=== PATIENT | male | born 1980 | race Caucasian/White ===

== ENCOUNTER 2020-12-25 02:06 | Emergency (ER) | payer SELFPAY ==
[2020-12-25 02:14] VITALS: BP 140/89; PULSE 88; RESP 18; TEMP 36.8; O2SAT 98
[2020-12-25] MEDS: IBUPROFEN 400 MG TABLET 800 MG PO (02:28)
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
[2020-12-25 02:50] VITALS: BP 132/80; PULSE 82; RESP 18; TEMP 37.2; O2SAT 98
[2020-12-25] MEDS: TETANUS,DIPHTHERIA,AC PERTUSSIS ADULT 0.5 ML (ADACEL) IM (03:00)
== END 2020-12-25 03:01 | disposition home or self-care (01) ==
PROVIDERS: Emergency Provider Emergency Medicine
DX: S70.312A Abrasion, left thigh, initial encounter (principal)
CPT/HCPCS: 90471; 90715; 99283; A9270

== ENCOUNTER 2021-03-24 22:43 | Emergency (ER) | payer SELFPAY ==
--- NOTE | ~2021-03-24 | XR_ITS ---
EXAMINATION: XR foot LT 2V INDICATION: Left foot pain TECHNIQUE: Three views of the left foot are obtained. COMPARISON: None available FINDINGS: There is a questionable acute, nondisplaced, transverse fracture of the shaft of the fifth distal phalanx. No additional acute osseous abnormality is suspected. 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 The soft tissues are unremarkable. IMPRESSION: 1. Possible nondisplaced fifth distal phalanx fracture. Reviewed, dictated and finalized at location A. TRICAL MACHINIST
[2021-03-25 00:02] VITALS: BP 114/67; PULSE 64; RESP 18; TEMP 36.4; O2SAT 98
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
[2021-03-25 00:57] VITALS: BP 114/88; PULSE 85; RESP 16; TEMP 36.8; O2SAT 98
== END 2021-03-25 00:59 | disposition home or self-care (01) ==
PROVIDERS: Emergency Provider Emergency Medicine
DX: S93.602A Unspecified sprain of left foot, initial encounter (principal)
CPT/HCPCS: 73620; 99282; 99283

== ENCOUNTER 2021-04-05 17:35 | Emergency (ER) | payer SELFPAY ==
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
[2021-04-05 17:54] VITALS: BP 145/93; PULSE 96; RESP 16; TEMP 36.9; O2SAT 100
--- NOTE | 2021-04-05 18:49 | ECG_ITS ---
Measurements Intervals Welch Rate: 95 P: 63 LA: 174 QRS: 78 QRSD: 105 T: 67 QT: 363 QTc: 458 Interpretive Statements SINUS RHYTHM POSSIBLE LEFT VENTRICULAR HYPERTROPHY MINIMAL Q WAVES- INF/LAT LEADS BASELINE ARTIFACT- I, III BORDERLINE ECG Electronically Signed On 04-05-2021 20:04:37 DIRECTOR OF LEADERSHIP DEVELOPMENT by Ted Frias D.O.
[2021-04-05 18:56] VITALS: BP 154/94; PULSE 91; RESP 20; O2SAT 99
[2021-04-05 19:20] LABS: Basophils Absolute Auto 0.03 K/mm3 (0.00-0.10); Basophils Percent Auto 0.3 % (0.0-1.0); Eosinophils Absolute Auto 0.06 K/mm3 (0.02-0.50); Eosinophils Percent Auto 0.6 % (1.0-6.0); Hematocrit 40.3 % (40.0-54.0); Hemoglobin 13.2 g/dL (14.0-18.0); Immature Granulocyte Absolute 0.03 K/mm3 (0.00-0.00); Immature Granulocyte Percent A 0.3 % (0.0-0.0); Lymphocytes Absolute Auto 1.45 K/mm3 (1.10-4.50); Lymphocytes Percent Auto 14.3 % (18.0-42.0); Mean Corpuscular HGB Conc 32.8 g/dL (32.0-36.0); Mean Corpuscular Hemoglobin 31.1 pg (27.0-31.0); Monocytes Absolute Auto 0.82 K/mm3 (0.10-0.90); Monocytes Percent Auto 8.1 % (2.0-11.0); Neutrophils Absolute Auto 7.7 K/mm3 (1.7-7.2); Neutrophils Percent Auto 76.4 % (50.0-70.0); Platelet Count Result 285 K/mm3 (150-420); Red Blood Count 4.24 M/mm3 (4.70-6.10); Red Cell Distribution Width 12.5 % (11.6-14.4); White Blood Count 10.1 K/mm3 (4.8-10.8)
[2021-04-05] MEDS: SODIUM CHLORIDE 0.9% IV 1,000 ML 999 ML IV CONT (19:21)
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
[2021-04-05 19:35] LABS: Alanine Aminotransferase 33 U/L (16-63); Alkaline Phosphatase 97 U/L (46-116); Anion Gap 8 mmol/L (8-16); Aspartate Amino Transferase 35 U/L (15-37); Bilirubin,Total 0.2 mg/dL (0.00-1.00); Blood Urea Nitrogen 17 mg/dL (7-18); Calcium 9.2 mg/dL (8.5-10.1); Carbon Dioxide 28 mmol/L (21-32); Chloride 103 mmol/L (98-108); Estimated CRCL calculation 54 ml/min; Estimated Glomerular Filt Rate 59; Glucose 111 mg/dL (70-99); Lactic Acid Reflex 0.9 mmol/L (0.4-2.0); Osmolality Calculated 290 mOsm/kg (285-295); Potassium 3.3 mmol/L (3.5-5.1); Sodium 139 mmol/L (136-145); Total Protein 6.8 g/dL (6.4-8.2); Troponin I 4.3 ng/L (0.00-60.4)
[2021-04-05 19:37] LABS: Ethanol < 3 mg/dL (0-6)
--- NOTE | 2021-04-05 20:07 | PC.NURSE ---
pt demanding to leave. this staff member informed patient that the doctor will see him and determine if he requires sutures. pt states, I want the fuck out of here. I don't need stitches , super glue is fine, i want the fuck out of here. this staff member informed MD Arboleda and informed me to have the patient sign out AMA. this staff member presented the patient with an AMA form to sign. patient refused to sign the AMA form and stated, i guess i need to at least see the doctor. this staff member informed MD Arboleda that the patient is going to wait to be seen by the doctor.
[2021-04-05 20:27] LABS: Add Urine Microscopic? NO; Appearance Urine Clear (Clear); Bilirubin Urine Negative (Negative); Blood Urine Negative (Negative); Color Urine Light Yellow (Yellow); Glucose Urine UA Negative (Negative); Ketones Urine Negative (Negative); Leukocyte Esterase Ur Negative (Negative); Nitrate Urine Negative (Negative); Protein Urine Negative (Negative); Urobilinogen Urine 0.2 mg/dL (0.2-1.0)
[2021-04-05 20:34] LABS: Amphetamine Screen Urine Positive (Negative); Barbiturate Screen Urine Negative (Negative); Benzodiazepines Screen Urine Negative (Negative); Cannabinoid Screen Urine Positive (Negative); Cocaine Screen Urine Negative (Negative); Methadone Screen Urine Negative (Negative); Opiate Screen Urine Negative (Negative); Phencyclidine Screen Urine Negative (Negative)
--- NOTE | 2021-04-05 20:48 | PC.NURSE ---
pt refused facial ct without contrast. MD Arboleda notified
--- NOTE | 2021-04-05 21:16 | PC.NURSE ---
pt stated, I don't want to wait. I want to get the fuck out of here. take this IV out so I can go. I don't want to wait for the doctor. Staff removed IV, applied dressing, and pt signed AMA form. MD Arboleda updated with pt status.
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
== END 2021-04-05 21:16 | disposition left against medical advice (07) ==
LOC: CHSED 17:38
PROVIDERS: Emergency Provider Emergency Medicine
DX: S09.90XA Unspecified injury of head, initial encounter (principal); V19.9XXA Pedal cyclist (driver) (passenger) injured in unspecified traffic accident, initial encounter
CPT/HCPCS: 36415; 70450; 72125; 80053; 80307; 81003; 83605; 84484; 85025; 93005; 96360; 99199; J7030

== ENCOUNTER 2021-04-27 06:29 | Emergency (ER) | payer SELFPAY ==
[2021-04-27 06:35] VITALS: BP 136/85; PULSE 80; RESP 20; TEMP 36.2; O2SAT 99
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
[2021-04-27] MEDS: HYDROcodone/acetaminophen (*CRX) 5-325 MG TABLET 1 TAB PO (07:10)
[2021-04-27] MEDS: NEOMYCIN/POLYMYXIN/BACITRACIN OINTMENT PACKET 2 PACKET TOPICAL (07:16)
[2021-04-27 07:27] LABS: Basophils Absolute Auto 0.04 K/mm3 (0.00-0.10); Basophils Percent Auto 0.3 % (0.0-1.0); Eosinophils Absolute Auto 0.12 K/mm3 (0.02-0.50); Eosinophils Percent Auto 0.9 % (1.0-6.0); Hematocrit 39.9 % (40.0-54.0); Hemoglobin 13.2 g/dL (14.0-18.0); Immature Granulocyte Absolute 0.04 K/mm3 (0.00-0.00); Immature Granulocyte Percent A 0.3 % (0.0-0.0); Lymphocytes Absolute Auto 1.95 K/mm3 (1.10-4.50); Lymphocytes Percent Auto 15.1 % (18.0-42.0); Mean Corpuscular HGB Conc 33.1 g/dL (32.0-36.0); Mean Corpuscular Hemoglobin 31.4 pg (27.0-31.0); Mean Platelet Volume 9.3 fl (8.7-11.0); Monocytes Absolute Auto 1.22 K/mm3 (0.10-0.90); Monocytes Percent Auto 9.5 % (2.0-11.0); Neutrophils Absolute Auto 9.5 K/mm3 (1.7-7.2); Neutrophils Percent Auto 73.9 % (50.0-70.0); Platelet Count Result 288 K/mm3 (150-420); Red Cell Distribution Width 12.3 % (11.6-14.4); White Blood Count 12.9 K/mm3 (4.8-10.8)
[2021-04-27 07:43] LABS: Alanine Aminotransferase 23 U/L (16-63); Albumin Level 3.3 g/dL (3.4-5.0); Alkaline Phosphatase 134 U/L (46-116); Anion Gap 11 mmol/L (8-16); Aspartate Amino Transferase 13 U/L (15-37); Bilirubin,Total 0.1 mg/dL (0.00-1.00); Blood Urea Nitrogen 10 mg/dL (7-18); Calcium 8.7 mg/dL (8.5-10.1); Carbon Dioxide 27 mmol/L (21-32); Chloride 100 mmol/L (98-108); Estimated CRCL calculation 83 ml/min; Estimated Glomerular Filt Rate > 60; Glucose 111 mg/dL (70-99); Osmolality Calculated 286 mOsm/kg (285-295); Potassium 3.6 mmol/L (3.5-5.1); Sodium 138 mmol/L (136-145); Total Protein 6.8 g/dL (6.4-8.2)
[2021-04-27 07:52] VITALS: BP 136/85; PULSE 76; RESP 16
== END 2021-04-27 07:54 | disposition home or self-care (01) ==
PROVIDERS: Emergency Medicine; Emergency Provider Emergency Medicine
DX: L03.90 Cellulitis, unspecified (principal)
CPT/HCPCS: 36415; 80053; 85025; 87040; 99282; 99283; A9270

== ENCOUNTER 2021-04-28 16:03 | Emergency (ER) | payer SELFPAY ==
[2021-04-28 16:10] VITALS: BP 128/87; PULSE 93; RESP 20; TEMP 37.3; O2SAT 100
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
[2021-04-28] MEDS: KETOROLAC (*BKC) 60 MG/2 ML VIAL IM (16:43)
[2021-04-28] MEDS: cefTRIAXone 1 GM VIAL IM (16:44)
[2021-04-28 16:45] VITALS: BP 126/84; PULSE 93; RESP 20; TEMP 37.3; O2SAT 100
--- NOTE | 2021-04-28 16:49 | PC.NURSE ---
pt did not want to wait 15 observation time after injection .
== END 2021-04-28 16:49 | disposition home or self-care (01) ==
PROVIDERS: Emergency Provider Emergency Medicine
DX: S60.86 Insect bite (nonvenomous) of wrist (principal); L03.113 Cellulitis of right upper limb
CPT/HCPCS: 96372; 99283; 99284; J0696; J1885

== ENCOUNTER 2021-07-07 21:10 | Emergency (ER) | payer SELFPAY ==
--- NOTE | ~2021-07-07 | CT_ITS ---
EXAMINATION: CT brain wo con EXAM DATE: 07/07/2021 21:36 INDICATION: Head injury. Laceration towards posterior skull TECHNIQUE: Spiral CT of the head was performed without contrast. Axial, coronal and sagittal images were reviewed. The dose-length product (DLP) for this examination was 605.33 mGy-cm. The exposure w as tailored according to patient size, and iterative reconstruction (ASIR) was used as additional dos e reduction technique. Comparison is made to prior examination from 04/05/2020. FINDINGS: There is no acute intraparenchymal hemorrhage. No evidence of intraparenchymal brain mass lesion. No evidence of acute infarction. There is no mass effect or midline shift. The ventricles are normal in size. There are no extra-axial collections. There are no acute calvarial fractures. T he orbits are unremarkable. Posterior scalp óscar. The visualized sinuses and mastoid air cells ar e well aerated. IMPRESSION: No acute intracranial findings. Reviewed, dictated and finalized at location G.
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
[2021-07-07 21:42] VITALS: BP 133/87; PULSE 96; RESP 21; TEMP 36.9; O2SAT 96
[2021-07-07 21:57] VITALS: BP 131/96; PULSE 100; RESP 21; TEMP 36.9; O2SAT 98
== END 2021-07-07 21:59 | disposition home or self-care (01) ==
PROVIDERS: Emergency Provider Emergency Medicine
DX: S01.01XA Laceration without foreign body of scalp, initial encounter (principal); Y04.0XXA Assault by unarmed brawl or fight, initial encounter
CPT/HCPCS: 12002; 70450; 99284

== ENCOUNTER 2021-07-13 19:18 | Emergency (ER) | payer SELFPAY ==
[2021-07-13 19:26] VITALS: BP 135/91; PULSE 83; RESP 18; TEMP 36.6; O2SAT 97
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
== END 2021-07-13 20:52 | disposition home or self-care (01) ==
PROVIDERS: Emergency Provider Internal Medicine Critical Care Medicine
DX: Z48.02 Encounter for removal of sutures (principal); S01.01XD Laceration without foreign body of scalp, subsequent encounter
CPT/HCPCS: 99281

== ENCOUNTER 2021-10-22 19:23 | Emergency (ER) | payer SELFPAY ==
--- NOTE | ~2021-10-22 | XR_ITS ---
XR tibia fibula LT 2V 10/22/2021 19:48 INDICATION: Left leg pain after fall PROCEDURE: 2 views left tibia/fibula COMPARISON: No prior studies for comparison. FINDINGS: Fracture, dislocation or subluxation is not identified. The soft tissues appear within norm al limits. No foreign bodies are identified. IMPRESSION: 1: NO ACUTE BONE OR JOINT ABNORMALITY IDENTIFIED. Reviewed, dictated and finalized at location A.
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
[2021-10-22 19:35] VITALS: BP 135/102; PULSE 102; RESP 19; TEMP 36.8; O2SAT 99
[2021-10-22 19:44] VITALS: RESP 19
--- NOTE | 2021-10-22 19:44 | PC.NURSE ---
pt refused blood draw for labs.
[2021-10-22 20:16] VITALS: BP 134/93; O2SAT 97
[2021-10-22 21:53] VITALS: BP 120/78; PULSE 83; RESP 16; TEMP 36.5; O2SAT 99
--- NOTE | 2021-10-22 21:55 | PC.NURSE ---
pt refused to provide a urine sample for labs
== END 2021-10-22 21:56 | disposition home or self-care (01) ==
PROVIDERS: Emergency Provider Emergency Medicine
DX: T50.901A Poisoning by unspecified drugs, medicaments and biological substances, accidental (unintentional), initial encounter (principal); S80.12XA Contusion of left lower leg, initial encounter; V19.9XXA Pedal cyclist (driver) (passenger) injured in unspecified traffic accident, initial encounter
CPT/HCPCS: 73590; 99283

== ENCOUNTER 2022-06-20 05:34 | Emergency (ER) | payer OTHER, SELFPAY ==
[2022-06-20 05:35] VITALS: BP 130/86; PULSE 95; RESP 20; TEMP 36.1; O2SAT 99
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
[2022-06-20 05:52] VITALS: BP 130/86; PULSE 95; RESP 20; TEMP 36.4; O2SAT 99
[2022-06-20 05:53] LABS: Basophils Absolute Auto 0.06 K/mm3 (0.00-0.10); Eosinophils Absolute Auto 0.12 K/mm3 (0.02-0.50); Eosinophils Percent Auto 1.9 % (1.0-6.0); Hemoglobin 11.6 g/dL (14.0-18.0); Immature Granulocyte Absolute 0.01 K/mm3 (0.00-0.00); Immature Granulocyte Percent A 0.2 % (0.0-0.0); Lymphocytes Percent Auto 43.1 % (18.0-42.0); Mean Corpuscular HGB Conc 32.2 g/dL (32.0-36.0); Mean Corpuscular Hemoglobin 30.6 pg (27.0-31.0); Mean Platelet Volume 9.3 fl (8.7-11.0); Monocytes Percent Auto 11.2 % (2.0-11.0); Neutrophils Absolute Auto 2.7 K/mm3 (1.7-7.2); Neutrophils Percent Auto 42.6 % (50.0-70.0); Platelet Count Result 223 K/mm3 (150-420); Red Blood Count 3.79 M/mm3 (4.70-6.10); Red Cell Distribution Width 12.6 % (11.6-14.4); White Blood Count 6.3 K/mm3 (4.8-10.8)
[2022-06-20] MEDS: cefTRIAXone 1 GM, LIDOCAINE HCL 1% LOCAL INJ 2.1 ML IM (06:07)
[2022-06-20 06:09] LABS: Alanine Aminotransferase 45 U/L (16-63); Albumin Level 3.7 g/dL (3.4-5.0); Alkaline Phosphatase 111 U/L (46-116); Anion Gap 6 mmol/L (8-16); Aspartate Amino Transferase 43 U/L (15-37); Bilirubin,Total 0.2 mg/dL (0.00-1.00); Blood Urea Nitrogen 10 mg/dL (7-18); Calcium 8.9 mg/dL (8.5-10.1); Carbon Dioxide 32 mmol/L (21-32); Chloride 105 mmol/L (98-108); Estimated CRCL calculation 84 ml/min; Estimated Glomerular Filt Rate > 60; Glucose 95 mg/dL (70-99); Osmolality Calculated 295 mOsm/kg (285-295); Potassium 4.2 mmol/L (3.5-5.1); Sodium 143 mmol/L (136-145); Total Protein 6.6 g/dL (6.4-8.2)
[2022-06-20 06:31] VITALS: BP 133/74; PULSE 87; RESP 18; TEMP 36.3; O2SAT 99
--- NOTE | 2022-06-26 18:57 | PC.NURSE ---
FINAL BLOOD CULTURE: No growth after 5 days, no action needed.
--- NOTE | 2022-06-28 12:09 | PC.NURSE ---
FINAL BLOOD CULTURE RESULTS X2: NO GROWTH AFTER 5 DAYS. NO ACTION NEEDED.
== END 2022-06-20 06:36 | disposition home or self-care (01) ==
PROVIDERS: Emergency Provider Emergency Medicine
DX: L03.032 Cellulitis of left toe (principal); F17.200 Nicotine dependence, unspecified, uncomplicated
CPT/HCPCS: 36415; 80053; 85025; 87040; 96372; 99284; J0696

== ENCOUNTER 2022-07-17 14:57 | Emergency (ER) | payer OTHER, SELFPAY ==
--- NOTE | ~2022-07-17 | XR_ITS ---
EXAMINATION: XR forearm RT 2V INDICATION: Right forearm pain TECHNIQUE: Two views of the right forearm are obtained. COMPARISON: None available FINDINGS: No fracture, dislocation, or subluxation. The bones, soft tissues, and joint spaces are nor mal. IMPRESSION: 1. No acute osseous abnormality. Reviewed, dictated and finalized at location B.
[2022-07-17 14:57] VITALS: BP 131/91; PULSE 100; RESP 18; TEMP 36.6; O2SAT 100
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
== END 2022-07-17 16:10 | disposition home or self-care (01) ==
PROVIDERS: Emergency Provider Family Medicine
DX: S50.11XA Contusion of right forearm, initial encounter (principal); F17.200 Nicotine dependence, unspecified, uncomplicated; W22.09XA Striking against other stationary object, initial encounter; Y93.55 Activity, bike riding
CPT/HCPCS: 73090; 99283

== ENCOUNTER 2022-08-14 18:13 | Emergency (ER) | payer OTHER, SELFPAY ==
[2022-08-14 18:13] VITALS: BP 118/88; PULSE 104; RESP 20; TEMP 36.6; O2SAT 98
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
[2022-08-14 19:07] LABS: Influenza A QL RT-PCR Negative (Negative); Influenza B QL RT-PCR Negative (Negative); SARS-CoV-2 RNA PCR Negative (Negative)
[2022-08-14 19:18] VITALS: BP 118/71; PULSE 78; RESP 18; TEMP 36.7; O2SAT 99
== END 2022-08-14 19:19 | disposition home or self-care (01) ==
LOC: CHSED 19:12
PROVIDERS: Emergency Provider Preventive Medicine Aerospace Medicine
DX: J06.9 Acute upper respiratory infection, unspecified (principal); F17.200 Nicotine dependence, unspecified, uncomplicated; Z20.822 Contact with and (suspected) exposure to COVID-19
CPT/HCPCS: 87636; 99283

== ENCOUNTER 2023-04-14 09:45 | Emergency (ER) | payer OTHER, SELFPAY ==
[2023-04-14] VITALS (10 sets, daily range): BP systolic 120–168; BP diastolic 85–97; PULSE 98; RESP 18; TEMP 35.9; O2SAT 98–100
--- NOTE | ~2023-04-14 | XR_ITS ---
EXAMINATION: XR hand LT min 3V DATE: 04/14/2023 10:30 INDICATION: Left hand lacerations and pain. TECHNIQUE: 4 views of left hand were obtained. COMPARISON: None. FINDINGS: Bone alignment is normal. There is a fragment of ossification palmar to base of fourth midd le phalanx. There is mild osteoarthritis of first carpometacarpal joint. There are lacerations of the fourth and fifth digits. IMPRESSION: 1. Fragment of ossification palmar to base of fourth middle phalanx, which may be an acute fracture o r a chronic finding. Reviewed, dictated and finalized at location A. ERS COMPENSATION ANALYST IMPRESSION: 1. Fragment of ossification palmar to base of fourth middle phalanx, which may be an acute fracture or a chronic finding.
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
[2023-04-14] MEDS: AMOXICILLIN/CLAVULANATE K 875-125 MG TAB 1 TABLET PO (11:09)
[2023-04-14] MEDS: HYDROcodone/acetaminophen (*CRX) 5-325 MG TABLET 2 TAB PO (11:09)
== END 2023-04-14 11:47 | disposition short-term general hospital (02) ==
PROVIDERS: Emergency Provider Emergency Medicine
DX: S61.412A Laceration without foreign body of left hand, initial encounter (principal); F17.200 Nicotine dependence, unspecified, uncomplicated; W26.0XXA Contact with knife, initial encounter; Y92.009 Unspecified place in unspecified non-institutional (private) residence as the place of occurrence of the external cause
CPT/HCPCS: 73130; 99283; A9270

== ENCOUNTER 2023-07-29 22:37 | Emergency (ER) | payer OTHER, SELFPAY ==
[2023-07-29 22:38] VITALS: BP 127/88; PULSE 84; RESP 18; TEMP 36.3; O2SAT 97
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
[2023-07-29] MEDS: IBUPROFEN 400 MG TABLET 800 MG PO (23:04)
== END 2023-07-29 23:07 | disposition home or self-care (01) ==
PROVIDERS: Emergency Provider Emergency Medicine
DX: K02.9 Dental caries, unspecified (principal); F17.210 Nicotine dependence, cigarettes, uncomplicated
CPT/HCPCS: 99283; A9270

== ENCOUNTER 2023-08-14 03:38 | Emergency (ER) | payer OTHER, SELFPAY ==
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
--- NOTE | ~2023-08-14 | XR_ITS ---
Left Hand Technique: PA, oblique, and lateral views were obtained. Clinical History: Pain Findings: No acute fracture or dislocation is seen. Osseous alignment is anatomic. Joint spaces are p reserved. Soft tissues are unremarkable. Impression: Unremarkable left hand. Reviewed, dictated and finalized at location M. Impression: Unremarkable left hand.
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
[2023-08-14 03:51] VITALS: BP 127/86; PULSE 103; RESP 16; TEMP 36.1; O2SAT 98
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
--- NOTE | 2023-08-14 04:20 | PC.NURSE ---
RN AT BEDSIDE TO MEDICATE PATIENT AFTER RETURNING FROM IMAGING. PATIENT NOTIFIED OF MEDICATION ORDERED AND ROUTE OF PAIN RELIEF HOWEVER PATIENT IMMEDIATELY REFUSES STATING NO SHOTS, I DON'T LIKE SHOTS, I DON'T LIKE NEEDLES, I DON'T WANT MORE PAIN. RN PROVIDED PATIENT EDUCATION REGARDING PAIN MEDICATION HOWEVER PATIENT REMAINED ADAMANT AROUND REFUSING MEDICATION. PATIENT RESTING COMFORTABLY ON STRETCHER AT THIS TIME, SEEMINGLY MORE CALM AFTER IMAGING.
== END 2023-08-14 05:12 | disposition home or self-care (01) ==
PROVIDERS: Emergency Provider Emergency Medicine
DX: S09.90XA Unspecified injury of head, initial encounter (principal); S20.213A Contusion of bilateral front wall of thorax, initial encounter; Y04.2XXA Assault by strike against or bumped into by another person, initial encounter; Z59.00 Homelessness unspecified; F17.210 Nicotine dependence, cigarettes, uncomplicated
CPT/HCPCS: 70450; 71046; 73130; 99284

== ENCOUNTER 2023-11-05 20:58 | Emergency (ER) | payer OTHER, SELFPAY ==
[2023-11-05] VITALS (9 sets, daily range): BP systolic 103–136; BP diastolic 80–101; PULSE 75–109; RESP 8–16; TEMP 36.9; O2SAT 90–100
--- NOTE | ~2023-11-05 | XR_ITS ---
EXAMINATION: XR chest 1V portable Exam Date/Time: 11/05/2023 21:14 CDT HISTORY: sob Comparison: 08/14/2023. RESULT: Lines, tubes, and devices: None. Lungs and pleura: Clear. Cardiomediastinal silhouette: Mild right hemidiaphragm elevation, otherwise stable. Other: No acute osseous or upper abdominal finding. IMPRESSION: No acute cardiopulmonary process. Reviewed, dictated and finalized at location K.
--- NOTE | 2023-11-05 21:10 | PC.NURSE ---
patient is on electronic device monitor. continues to refuse treatment to be completed
[2023-11-05] MEDS: LORazepam (*CRX) 1 MG TABLET 2 MG PO (21:17)
--- NOTE | 2023-11-05 21:17 | PC.NURSE ---
patient is willing to take ativan after Dr Brumfield spoke with him about his anxiety.
--- NOTE | 2023-11-05 21:18 | ECG_ITS ---
Test Date: 2023-11-05 21:39:00 Measurements Intervals [place] Rate: 91 P: 61 KS: 156 QRS: 57 QRSD: 98 T: 45 QT: 367 QTc: 453 Interpretive Statements SINUS RHYTHM POSSIBLE LEFT ATRIAL ENLARGEMENT POSSIBLE LEFT VENTRICULAR HYPERTROPHY MINIMAL Q WAVES- ANTEROLAT/INF LEADS BORDERLINE ECG No previous ECG available for comparison Electronically Signed On 11-06-2023 07:21:07 CDT by Ted Frias D.O.
--- NOTE | 2023-11-05 21:49 | PC.NURSE ---
patient is refusing to allow iv line placement, refusing narcan. Dr Brumfield at the bedside
--- NOTE | 2023-11-05 22:00 | PC.NURSE ---
patients respirations drop down to 7-8 breaths per minute. woke patient and told him that iv line was need to placed. dr persaud was notified
[2023-11-05 22:07] LABS: Basophils Absolute Auto 0.05 K/mm3 (0.00-0.10); Basophils Percent Auto 0.6 % (0.0-1.0); Eosinophils Absolute Auto 0.13 K/mm3 (0.02-0.50); Eosinophils Percent Auto 1.6 % (1.0-6.0); Hemoglobin 12.3 g/dL (14.0-18.0); Immature Granulocyte Absolute 0.04 K/mm3 (0.00-0.00); Immature Granulocyte Percent A 0.5 % (0.0-0.0); Lymphocytes Absolute Auto 2.27 K/mm3 (1.10-4.50); Mean Corpuscular HGB Conc 33.2 g/dL (32-36); Mean Corpuscular Hemoglobin 30.5 pg (27.0-31.0); Mean Corpuscular Volume 91.8 fL (78.0-102.0); Mean Platelet Volume 8.8 fl (8.7-11.0); Monocytes Absolute Auto 0.89 K/mm3 (0.10-0.90); Neutrophils Absolute Auto 4.73 K/mm3 (1.70-7.20); Neutrophils Percent Auto 58.3 % (50.0-70.0); Platelet Count Result 298 K/mm3 (150-420); Red Blood Count 4.03 M/mm3 (4.70-6.10); Red Cell Distribution Width 12.6 % (11.6-14.4); White Blood Count 8.1 K/mm3 (4.8-10.8)
[2023-11-05] MEDS: SODIUM CHLORIDE 0.9% IV 1,000 ML 999 ML IV CONT (22:07)
[2023-11-05] MEDS: NALOXONE HCL 0.4 MG/ML VIAL 0.1 MG IV PUSH (22:09)
--- NOTE | 2023-11-05 22:12 | PC.NURSE ---
Dr Brumfield at the bedside during narcan administration.
--- NOTE | 2023-11-05 22:15 | PC.NURSE ---
patient is more alert at this time. does fall back asleep quickly
--- NOTE | 2023-11-05 22:23 | PC.NURSE ---
this rn and provider were talking about depressed respiratory drive and patient states oh like when people use fentanyl
[2023-11-05 22:26] LABS: Alanine Aminotransferase 31 U/L (16-63); Albumin Level 3.9 g/dL (3.4-5.0); Anion Gap 8 mmol/L (4-12); Aspartate Amino Transferase 30 U/L (15-37); Bilirubin,Total 0.2 mg/dL (0.00-1.00); Blood Urea Nitrogen 21 mg/dL (7-18); Calcium 8.8 mg/dL (8.5-10.1); Carbon Dioxide 29 mmol/L (21-32); Chloride 99 mmol/L (98-108); Estimated CRCL calculation 73 ml/min; Estimated Glomerular Filt Rate > 60; Glucose 110 mg/dL (70-99); Osmolality Calculated 286 mOsm/kg (285-295); Potassium 3.4 mmol/L (3.5-5.1); Sodium 136 mmol/L (136-145); Total Protein 6.9 g/dL (6.4-8.2); Troponin I 5.1 ng/L (0.00-60.4)
[2023-11-05 22:27] LABS: Acetaminophen 0 ug/mL (10-30); Salicylate 3.5 mg/dL (2.8-20.0)
[2023-11-05 22:27] LABS: Alkaline Phosphatase 103 U/L (46-116); Ethanol < 3 mg/dL (0-6)
--- NOTE | 2023-11-05 22:46 | PC.NURSE ---
patient resting on stretcher. call light in reach. curtains and door left open for increased monitoring
--- NOTE | 2023-11-05 23:21 | PC.NURSE ---
patient is resting quietly on stretcher. resp even and unlabored. door and curtain remains open for increased monitoring
[2023-11-06] VITALS (25 sets, daily range): BP systolic 110–147; BP diastolic 78–104; PULSE 52–83; RESP 7–12; O2SAT 98–100
--- NOTE | 2023-11-06 00:20 | PC.NURSE ---
patient was moved from room 7 to room 6 where he could be monitored better. door and curtain left open for increased monitoring
--- NOTE | 2023-11-06 01:22 | PC.NURSE ---
patient is resting quietly on stretcher, door and curtain left open so patient can be monitored. resp even and unlabored. call light in reach. will try and get urine sample when patient wakes up
--- NOTE | 2023-11-06 01:33 | PC.NURSE ---
patient keeps taking pulse ox off. sticky pulse ox placed onto patient. patient woke, asked patient if he needed to use the bathroom. mumbled and went back to sleep. urinal at the bedside
--- NOTE | 2023-11-06 02:30 | PC.NURSE ---
patient resting on stretcher in room 6. curtain and door left open to be monitored by staff. appears to be sleeping. resp even and unlabored. manager cardiac in place. call light in reach. urinal at the bedside
--- NOTE | 2023-11-06 03:20 | PC.NURSE ---
patient tried to pull out iv line. told patient to leave iv site alone. patient states oh yea
--- NOTE | 2023-11-06 04:27 | PC.NURSE ---
patient resting on stretcher in room 6. door and curtain open st staff can monitor patient. patient resp even and unlabored. urinal at the bedside. call light in reach
--- NOTE | 2023-11-06 05:11 | PC.NURSE ---
patient sat up and tried to mess with iv site. states im just scratching at it. i am not trying to take it out . this was the clearest that patient has talked since he has been here.
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
--- NOTE | 2023-11-06 07:22 | PC.NURSE ---
PT IS RESTING ON STRETCHER, AROUSES TO VERBAL STIMULI. PT IS TO BE DC WHEN MORE ALERT. BREAKFAST TRAY WAS ORDERED. WILL CONTINUE TO MONITOR.
--- NOTE | 2023-11-06 08:07 | PC.NURSE ---
pt ate all of his breakfast, is awake, alert, has steady gait. pt reports he is ready to be dc.
== END 2023-11-06 08:10 | disposition home or self-care (01) ==
PROVIDERS: Emergency Provider Family Medicine
DX: T40.601A Poisoning by unspecified narcotics, accidental (unintentional), initial encounter (principal); F17.200 Nicotine dependence, unspecified, uncomplicated
CPT/HCPCS: 36415; 71045; 80053; 80307; 84484; 85025; 93005; 96361; 96374; 99284; A9270; J2310; J7030

== ENCOUNTER 2024-01-15 05:58 | Emergency (ER) | payer OTHER, SELFPAY ==
[2024-01-15 06:04] VITALS: BP 135/103; PULSE 92; RESP 24; TEMP 36.3; O2SAT 98
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
[2024-01-15 06:43] LABS: Basophils Absolute Auto 0.04 K/mm3 (0.00-0.10); Basophils Percent Auto 0.5 % (0.0-1.0); Eosinophils Absolute Auto 0.11 K/mm3 (0.02-0.50); Eosinophils Percent Auto 1.4 % (1.0-6.0); Hematocrit 41.4 % (40.0-54.0); Hemoglobin 13.6 g/dL (14.0-18.0); Immature Granulocyte Absolute 0.03 K/mm3 (0.00-0.00); Immature Granulocyte Percent A 0.4 % (0.0-0.0); Lymphocytes Absolute Auto 2.91 K/mm3 (1.10-4.50); Lymphocytes Percent Auto 37.4 % (18.0-42.0); Mean Corpuscular HGB Conc 32.9 g/dL (32-36); Mean Corpuscular Hemoglobin 30.9 pg (27.0-31.0); Mean Corpuscular Volume 94.1 fL (78.0-102.0); Mean Platelet Volume 8.7 fl (8.7-11.0); Monocytes Absolute Auto 0.75 K/mm3 (0.10-0.90); Monocytes Percent Auto 9.6 % (2.0-11.0); Neutrophils Absolute Auto 3.95 K/mm3 (1.70-7.20); Neutrophils Percent Auto 50.7 % (50.0-70.0); Platelet Count Result 328 K/mm3 (150-420); Red Cell Distribution Width 12.8 % (11.6-14.4); White Blood Count 7.8 K/mm3 (4.8-10.8)
[2024-01-15 06:57] LABS: Alanine Aminotransferase 30 U/L (16-63); Albumin Level 3.6 g/dL (3.4-5.0); Alkaline Phosphatase 102 U/L (46-116); Anion Gap 6 mmol/L (4-12); Aspartate Amino Transferase 34 U/L (15-37); Bilirubin,Total 0.4 mg/dL (0.00-1.00); Blood Urea Nitrogen 12 mg/dL (7-18); Calcium 8.7 mg/dL (8.5-10.1); Carbon Dioxide 32 mmol/L (21-32); Chloride 104 mmol/L (98-108); Estimated CRCL calculation 69 ml/min; Estimated Glomerular Filt Rate > 60; Glucose 107 mg/dL (70-99); Osmolality Calculated 293 mOsm/kg (285-295); Potassium 3.7 mmol/L (3.5-5.1); Sodium 142 mmol/L (136-145); Total Protein 6.4 g/dL (6.4-8.2)
--- NOTE | 2024-01-15 07:03 | PC.NURSE ---
Pt resting in stretcher. Gave report to NICOLE Mchugh.
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
[2024-01-15 07:27] LABS: Amphetamine Screen Urine Positive (Negative); Barbiturate Screen Urine Negative (Negative); Benzodiazepines Screen Urine Negative (Negative); Cannabinoid Screen Urine Positive (Negative); Cocaine Screen Urine Negative (Negative); Methadone Screen Urine Negative (Negative); Opiate Screen Urine Negative (Negative); Phencyclidine Screen Urine Negative (Negative)
[2024-01-15 07:28] LABS: Add Urine Microscopic? NO; Appearance Urine Clear (Clear); Bilirubin Urine Negative (Negative); Blood Urine Negative (Negative); Color Urine Yellow (Yellow); Glucose Urine UA Negative (Negative); Ketones Urine Negative (Negative); Leukocyte Esterase Ur Negative LEU/UL (Negative); Nitrate Urine Negative (Negative); Protein Urine Negative (Negative); Specific Grav Ur >= 1.030 (1.010-1.020); Urobilinogen Urine 0.2 mg/dL (0.2-1.0)
[2024-01-15 07:45] VITALS: BP 146/98; PULSE 88; RESP 18; O2SAT 98
== END 2024-01-15 07:45 | disposition home or self-care (01) ==
PROVIDERS: Family Medicine; Emergency Provider Emergency Medicine
DX: F15.19 Other stimulant abuse with unspecified stimulant-induced disorder (principal); F12.929 Cannabis use, unspecified with intoxication, unspecified; Z59.00 Homelessness unspecified
CPT/HCPCS: 36415; 80053; 80307; 81003; 85025; 99283

== ENCOUNTER 2024-03-02 01:03 | Emergency (ER) | payer OTHER, SELFPAY ==
[2024-03-02 01:09] VITALS: BP 130/93; PULSE 100; RESP 18; TEMP 36.7; O2SAT 98
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
[2024-03-02] MEDS: AMOXICILLIN/CLAVULANATE K 875-125 MG TAB 1 TABLET PO (01:28)
[2024-03-02] MEDS: IBUPROFEN 400 MG TABLET 800 MG PO (01:28)
[2024-03-02 01:46] VITALS: BP 128/82; PULSE 99; RESP 18; O2SAT 98
== END 2024-03-02 01:46 | disposition home or self-care (01) ==
PROVIDERS: Emergency Provider Emergency Medicine
DX: L02.412 Cutaneous abscess of left axilla (principal); F17.200 Nicotine dependence, unspecified, uncomplicated
CPT/HCPCS: 99283; A9270

== ENCOUNTER 2024-03-15 09:31 | Emergency (ER) | payer OTHER, SELFPAY ==
--- NOTE | ~2024-03-15 | XR_ITS ---
XR finger 3rd LT min 2V DATE: 03/15/2024 09:45 INDICATION: Possible metallic foreign body in the tip of the left third digit TECHNIQUE: 3 views COMPARISON: None FINDINGS: No metallic foreign body is noted. No subcutaneous emphysema. No fracture, dislocation, periosteal reaction or bone destruction. There are metacarpophalangeal and proximal and distal interphalangeal joint spaces are well preserved. IMPRESSION: No radiopaque foreign body or significant bony abnormality Reviewed, dictated and finalized at location A. 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
[2024-03-15 09:36] VITALS: BP 138/76; PULSE 97; RESP 18; TEMP 35.6; O2SAT 100
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
== END 2024-03-15 10:22 | disposition home or self-care (01) ==
LOC: CHSED 10:08
PROVIDERS: Emergency Provider Family Medicine
DX: L03.012 Cellulitis of left finger (principal); F17.200 Nicotine dependence, unspecified, uncomplicated
CPT/HCPCS: 73140; 99283

== ENCOUNTER 2024-03-17 06:55 | Emergency (ER) | payer OTHER, SELFPAY ==
[2024-03-17 07:00] VITALS: BP 132/98; PULSE 105; RESP 18; TEMP 36.6; O2SAT 98
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
[2024-03-17 08:04] VITALS: BP 124/83; PULSE 88; RESP 18; TEMP 36.5; O2SAT 97
== END 2024-03-17 08:07 | disposition home or self-care (01) ==
LOC: CHSED 07:54
PROVIDERS: Emergency Provider Emergency Medicine
DX: L02.512 Cutaneous abscess of left hand (principal)
CPT/HCPCS: 10060; 99283

== ENCOUNTER 2024-06-10 03:59 | Emergency (ER) | payer OTHER, SELFPAY ==
[2024-06-10 04:00] VITALS: BP 132/85; PULSE 84; RESP 20; TEMP 36.6; O2SAT 100
--- OUTSIDE RECORDS SUMMARY | 2024-06-10 04:01 | XMS_ITS | Clinical Summary ---
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 Gender Identity Not on file Sexual Orientation Not on file Plan of Treatment Health Maintenance Due Date Last Done Comments Colorectal Cancer Screening Colonoscopy (10 Years) 1978 Annual Physical 1981 Hepatitis C 1996 DTaP, Tdap and Td Vaccines ( 1 - Tdap) 1997 Hepatitis B Vaccines (1 of 3 - 19+ 3-dose series) 1997 COVID-19 Vaccine (2023-2 5 season) 2023 Influenza Adult (#1) 2024 HPV Vaccines Aged Out No longer eligi ble based on patient's age to complete this topic Meningococcal B Vaccine Aged Out No l onger eligible based on patient's age to complete this topic Meningococcal Vaccine Aged Out No clinton stephanie eligible based on patient's age to complete this topic Pneumococcal Vaccine: Pediat rics (0 to 5 Years) and At-Risk Patients (6 to 64 Years) Aged Out No longer eligible b ased on patient's age to complete this topic RSV Immunizations Under 20 Months Aged Out No longer eligible based on patient's age to complete this topic
--- OUTSIDE RECORDS SUMMARY | 2024-06-10 04:01 | XMS_ITS | Referral Summary ---
Author Organization [facility] Address [address] [place] [address] Care Team Providers Care Strategy Analyst Name Role Phone Unavailable Primary Care Provider Unavailabl e Source Comments [facility],non-owned Affiliates and Associated Physician Practices is amultiple site organization consisting of ambulatory clinics and hospital sitesin [place], [place], [place] and [place]. This disclosure is being madepursuant to the Care Everywhere program and may not contain all information available regarding this patient. Last updated 18.[facility] Allergies No known active allergies Medications * Be aware that medications may not be up to date on this document. Alwaysverify current medications with the patient. Medication Sig Dispensed Refills Start Date End Date Status acetaminophen (Tylenol) 500 MG tablet Take 1 (one) tablet by mouth every 4 hours as needed for Fever or Pain Maximum allowable Acetaminophen amount = 4 Grams (4000 mg) / 24 hours. 30 tablet 04/15/2023 Active Social History Tobacco Use Types Packs/Day Years Used Date Smoking Tobacco: Never Smokeless Tobacco: Never Tobacco Cessation:Counseling Given: Not Answered Alcohol Use Standard Drinks/Week Comments Yes 0 (1 standard drink = 0.6 oz pur e alcohol) social Sex and Gender Information Value Date Recorded Sex Assigned at Not on file Gender Identity Not on file Sexual Orientation Not on file Last Filed Vital Signs Vital Sign Reading Time Taken Comments Blood Pressure 121/87 04/15/2023 9:21 AM HUMAN ANATOMY TEACHER Pulse 66 04/15/2023 9:21 AM HUMAN ANATOMY TEACHER Temperature 36.4 C (97.6 F) 04/15/2023 1:56 AM HUMAN ANATOMY TEACHER Respiratory Rate 16 04/15/2023 9:21 AM HUMAN ANATOMY TEACHER Oxygen Saturation 99% 04/15/2023 9:21 AM HUMAN ANATOMY TEACHER RA Inhaled Oxygen Concentration - - Weight 63.5 kg (140 lb) 04/15/2023 1:56 AM HUMAN ANATOMY TEACHER Height 167.6 cm (5' 6 ) 04/15/2023 1:56 AM HUMAN ANATOMY TEACHER Body Mass Index 22.6 04/15/2023 1:56 AM HUMAN ANATOMY TEACHER Plan of Treatment Not on file
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
--- OUTSIDE RECORDS SUMMARY | 2024-06-10 04:01 | XMS_ITS | Clinical Summary ---
Author Organization [facility] Address [address] [place] [address] Care Team Providers Care Fish Hatchery Manager Name Role Phone Unavailable Primary Care Provider Unavailabl e Source Comments [facility],non-owned Affiliates and Associated Physician Practices is amultiple site organization consisting of ambulatory clinics and hospital sitesin [place], [place], [place] and [place]. This disclosure is being madepursuant to the Care Everywhere program and may not contain all information available regarding this patient. Last updated 18.[facility] Allergies No known active allergies Medications * [...] Comments Blood Pressure 121/87 04/15/2023 9:21 AM CLIENT ADVOCATE Pulse 66 04/15/2023 9:21 AM CLIENT ADVOCATE Temperature 36.4 C (97.6 F) 04/15/2023 1:56 AM CLIENT ADVOCATE Respiratory Rate 16 04/15/2023 9:21 AM CLIENT ADVOCATE Oxygen Saturation 99% 04/15/2023 9:21 AM CLIENT ADVOCATE RA Inhaled Oxygen Concentration - - Weight 63.5 kg (140 lb) 04/15/2023 1:56 AM CLIENT ADVOCATE Height 167.6 cm (5' 6 ) 04/15/2023 1:56 AM CLIENT ADVOCATE Body Mass Index 22.6 04/15/2023 1:56 AM CLIENT ADVOCATE Plan of Treatment Health Maintenance Due Date Last Done Comments COLOGUARD (AGES 45-75) - COL ON CA SCREENING 1978 COLON MONITORING 1978 COLONOSCOPY - COLON CA SCREENING 1978 CT COLONOGRAPHY - COLON CA SCREENING 1978 Colorectal Cancer Screening 1978 FIT - COLON CA SCREENING 1978 FLEX SIG - COLON CA SCREENING 1978 LIPID TESTING 1978 HIV SCREENING 1993 HEPATITIS C SCREENING 12/22/1996 DTAP/TDAP/TD VACCINES (1 - Tdap) 1997 HEPATITIS B VACCINE (1 of 3 - 19+ 3-dose series) 1997 COVID-19 VACCINE ( - 2023-2 5 season) 2023 INFLUENZA VACCINE (#1) 2023 DEPRESSION SCREENING 04/16/2024 ZOSTER VACCINE (1 of 2) 2028 HIB VACCINE Aged Out No longer eligi ble based on patient's age to complete this topic HPV VACCINE Aged Out No longer eligi ble based on patient's age to complete this topic MENINGOCOCCAL (Group B) VACCINE Aged Out No longer eligible based on patient's age to complete this topic MENINGOCOCCAL VACCINE Aged Out No clinton stephanie eligible based on patient's age to complete this topic PNEUMOCOCCAL VACCINE Aged Out No long er eligible based on patient's age to complete this topic
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
[2024-06-10] MEDS: ACETAMINOPHEN 500 MG TABLET 1000 MG PO (04:13)
[2024-06-10] MEDS: AMOXICILLIN/CLAVULANATE K 875-125 MG TAB 1 TABLET PO (04:14)
[2024-06-10 04:26] VITALS: BP 125/90; PULSE 74; RESP 20; TEMP 36.6; O2SAT 99
== END 2024-06-10 04:27 | disposition home or self-care (01) ==
LOC: CHSED 04:09
PROVIDERS: Emergency Provider Preventive Medicine Aerospace Medicine
DX: K04.7 Periapical abscess without sinus (principal); F17.200 Nicotine dependence, unspecified, uncomplicated
CPT/HCPCS: 99283; A9270

== ENCOUNTER 2024-06-30 14:55 | Emergency (ER) | payer OTHER, SELFPAY ==
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
[2024-06-30 15:09] VITALS: BP 121/84; PULSE 106; RESP 18; TEMP 37; O2SAT 97
--- NOTE | 2024-06-30 15:19 | PC.NURSE ---
throat and nasal swab obtained
[2024-06-30 15:34] LABS: Strep Group A RT-PCR NOT DETECTED (Negative)
[2024-06-30 15:47] LABS: Influenza A QL RT-PCR Negative (Negative); Influenza B QL RT-PCR Negative (Negative); RSV RNA, RT-PCR Negative (Negative); SARS-CoV-2 RNA PCR Negative (Negative)
--- OUTSIDE RECORDS SUMMARY | 2024-06-30 17:36 | XMS_ITS | Referral Summary ---
Author Organization [facility] Address [address] [place] [address] Care Team Providers Care Corporate Receptionist Name Role Phone Unavailable Primary Care Provider Unavailabl e Source Comments [facility],non-owned Affiliates and Associated Physician Practices is amultiple site organization consisting of ambulatory clinics and hospital sitesin [place], [place], [place] and [place]. This disclosure is being madepursuant to the Care Everywhere program and may not contain all information available regarding this patient. Last updated 18.[facility] Allergies No known active allergies Medications * [...] Comments Blood Pressure 121/87 04/15/2023 9:21 AM BOX SEALING MACHINE FEEDER Pulse 66 04/15/2023 9:21 AM BOX SEALING MACHINE FEEDER Temperature 36.4 C (97.6 F) 04/15/2023 1:56 AM BOX SEALING MACHINE FEEDER Respiratory Rate 16 04/15/2023 9:21 AM BOX SEALING MACHINE FEEDER Oxygen Saturation 99% 04/15/2023 9:21 AM BOX SEALING MACHINE FEEDER RA Inhaled Oxygen Concentration - - Weight 63.5 kg (140 lb) 04/15/2023 1:56 AM BOX SEALING MACHINE FEEDER Height 167.6 cm (5' 6 ) 04/15/2023 1:56 AM BOX SEALING MACHINE FEEDER Body Mass Index 22.6 04/15/2023 1:56 AM BOX SEALING MACHINE FEEDER Plan of Treatment Not on file
--- OUTSIDE RECORDS SUMMARY | 2024-06-30 17:36 | XMS_ITS | Patient Health Summary ---
Author Organization [facility] Address [address] [place] [address] Care Team Providers Care Rocket Test Fire Worker Name Role Phone Unavailable Primary Care Provider Unavailabl e Note from [facility],non-owned Affiliates and Associated Physician Practices is amultiple site organization consisting of ambulatory clinics and hospital sitesin [place], [place], [place] and [place]. This disclosure is being madepursuant to the Care Everywhere program and may not contain all information available regarding this patient. Last updated 18.[facility] [employer] Allergies No known active allergies Medications * [...] Comments Blood Pressure 121/87 04/15/2023 9:21 AM FOREST FIRE LOOKOUT Pulse 66 04/15/2023 9:21 AM FOREST FIRE LOOKOUT Temperature 36.4 C (97.6 F) 04/15/2023 1:56 AM FOREST FIRE LOOKOUT Respiratory Rate 16 04/15/2023 9:21 AM FOREST FIRE LOOKOUT Oxygen Saturation 99% 04/15/2023 9:21 AM FOREST FIRE LOOKOUT RA Inhaled Oxygen Concentration - - Weight 63.5 kg (140 lb) 04/15/2023 1:56 AM FOREST FIRE LOOKOUT Height 167.6 cm (5' 6 ) 04/15/2023 1:56 AM FOREST FIRE LOOKOUT Body Mass Index 22.6 04/15/2023 1:56 AM FOREST FIRE LOOKOUT Procedures * XR HAND LEFT 3VW OR MORE(Performed 04/15/2023) Performed for Laceration of left hand without foreign body, initial encounter Results * XR HAND LEFT 3VW OR MORE (04/15/2023 8:13 AM FOREST FIRE LOOKOUT) Anatomical Region Laterality Modality Wrist / Hand Radiographic Marcy ging 04/15/2023 8:18 AM FOREST FIRE LOOKOUT Impressions 04/15/2023 8:29 AM FOREST FIRE LOOKOUT IMPRESSION: Laceration of the soft tissues of the ventral fourth and fifth digit proximal phalanges. No acute osseous abnormality. No retained radiopaque foreign bodies. Report dictated by Kirt Zelaya MD (interventional radiology tech). IMICHAEL MD have personally reviewed and interpreted this examination/study. 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 FINDINGS: Nonstandard positioning limits evaluation [...] MORE, DATE/TIME OF EXAM: 38:14 AM, LOCATION [facility] INDICATION: S61.412A: Laceration of left hand without [...] bodies. Report dictated by Kirt Zelaya MD (interventional radiology tech). I, MICHAEL WALLIS MD have personally reviewed and interpreted this examination/study. > Interpreting Provider: MICHAEL WALLIS MD on 04/15/2023 8:29 AM Yuriy Randolph MD DIAGNOSTIC IMAGING [facility]
--- OUTSIDE RECORDS SUMMARY | 2024-06-30 17:36 | XMS_ITS | Clinical Summary ---
Author Organization [facility] Address [address] [place] [address] Care Team Providers Care Personalized Living Manager Name Role Phone Unavailable Primary Care Provider Unavailabl e Social History Tobacco Use Types Packs/Day Years Used Date Smoking Tobacco: Never Assessed Sex and Gender Information Value Date Recorded Sex Assigned at Not on file Legal Sex Male 5:52 PM CELL ATTENDANT HELPER Gender Identity Not on file Sexual Orientation [...]
--- OUTSIDE RECORDS SUMMARY | 2024-06-30 17:36 | XMS_ITS | Clinical Summary ---
Author Organization [facility] [employer] Address [address] [place] [address] Care Team Providers Care Customer Support Coordinator Name Role Phone Unavailable Primary Care Provider Unavailabl e Source Comments [facility] [employer],non-owned Affiliates and Associated Physician Practices is amultiple site organization consisting of ambulatory clinics and hospital sitesin [place], [place], [place] and [place]. This disclosure is being madepursuant to the Care Everywhere program and may not contain all information available regarding this patient. Last updated 18.[facility] [employer] Allergies No known active allergies Medications * [...] Comments Blood Pressure 121/87 04/15/2023 9:21 AM RELOCATION SPECIALIST Pulse 66 04/15/2023 9:21 AM RELOCATION SPECIALIST Temperature 36.4 C (97.6 F) 04/15/2023 1:56 AM RELOCATION SPECIALIST Respiratory Rate 16 04/15/2023 9:21 AM RELOCATION SPECIALIST Oxygen Saturation 99% 04/15/2023 9:21 AM RELOCATION SPECIALIST RA Inhaled Oxygen Concentration - - Weight 63.5 kg (140 lb) 04/15/2023 1:56 AM RELOCATION SPECIALIST Height 167.6 cm (5' 6 ) 04/15/2023 1:56 AM RELOCATION SPECIALIST Body Mass Index 22.6 04/15/2023 1:56 AM RELOCATION SPECIALIST Plan of Treatment Health Maintenance Due Date [...] to complete this topic MENINGOCOCCAL (Group B) VACC INE SHARED DECISION-MAKING Aged Out No longer eligibl e based on patient's age to complete this topic MENINGOCOCCAL GROUPS A/C/Y/W VACCINE Aged Out No longer eligible b ased on patient's age to complete this topic PNEUMOCOCCAL VACCINE Aged Out No long er eligible based on patient's age to complete this topic
--- OUTSIDE RECORDS SUMMARY | 2024-06-30 17:59 | XMS_ITS | Clinical Summary ---
Author Organization [facility] Address [address] [place] [address] Care Team Providers Care Sap Technical Developer Name Role Phone Unavailable Primary Care Provider Unavailabl e Source Comments [facility],non-owned Affiliates and Associated Physician Practices is amultiple site organization consisting of ambulatory clinics and hospital sitesin [place], [place], [place] and [place]. This disclosure is being madepursuant to the Care Everywhere program and may not contain all information available regarding this patient. Last updated 18.[facility] Allergies No known active allergies Medications * [...] Comments Blood Pressure 121/87 04/15/2023 9:21 AM RESERVATIONIST Pulse 66 04/15/2023 9:21 AM RESERVATIONIST Temperature 36.4 C (97.6 F) 04/15/2023 1:56 AM RESERVATIONIST Respiratory Rate 16 04/15/2023 9:21 AM RESERVATIONIST Oxygen Saturation 99% 04/15/2023 9:21 AM RESERVATIONIST RA Inhaled Oxygen Concentration - - Weight 63.5 kg (140 lb) 04/15/2023 1:56 AM RESERVATIONIST Height 167.6 cm (5' 6 ) 04/15/2023 1:56 AM RESERVATIONIST Body Mass Index 22.6 04/15/2023 1:56 AM RESERVATIONIST Plan of Treatment Health Maintenance Due Date [...]
--- OUTSIDE RECORDS SUMMARY | 2024-06-30 17:59 | XMS_ITS | Clinical Summary ---
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
--- OUTSIDE RECORDS SUMMARY | 2024-06-30 17:59 | XMS_ITS | Referral Summary ---
Author Organization [facility] Address [address] [place] [address] Care Team Providers Care Casino Change Attendant Name Role Phone Unavailable Primary Care Provider Unavailabl e Source Comments [facility],non-owned Affiliates and Associated Physician Practices is amultiple site organization consisting of ambulatory clinics and hospital sitesin [place], [place], [place] and [place]. This disclosure is being madepursuant to the Care Everywhere program and may not contain all information available regarding this patient. Last updated 18.[facility] Allergies No known active allergies Medications * [...] Comments Blood Pressure 121/87 04/15/2023 9:21 AM DEPUTY CORONER Pulse 66 04/15/2023 9:21 AM DEPUTY CORONER Temperature 36.4 C (97.6 F) 04/15/2023 1:56 AM DEPUTY CORONER Respiratory Rate 16 04/15/2023 9:21 AM DEPUTY CORONER Oxygen Saturation 99% 04/15/2023 9:21 AM DEPUTY CORONER RA Inhaled Oxygen Concentration - - Weight 63.5 kg (140 lb) 04/15/2023 1:56 AM DEPUTY CORONER Height 167.6 cm (5' 6 ) 04/15/2023 1:56 AM DEPUTY CORONER Body Mass Index 22.6 04/15/2023 1:56 AM DEPUTY CORONER Plan of Treatment Not on file
--- OUTSIDE RECORDS SUMMARY | 2024-06-30 17:59 | XMS_ITS | Patient Health Summary ---
Author Organization [facility] Address [address] [place] [address] Care Team Providers Care Associate Justice Name Role Phone Unavailable Primary Care Provider Unavailabl e Note from [facility],non-owned Affiliates and Associated Physician Practices is amultiple site organization consisting of ambulatory clinics and hospital sitesin [place], [place], [place] and [place]. This disclosure is being madepursuant to the Care Everywhere program and may not contain all information available regarding this patient. Last updated 18.[facility] [employer] [facility] Allergies No known active allergies Medications * [...] Comments Blood Pressure 121/87 04/15/2023 9:21 AM CONVENTIONS RESERVATIONIST Pulse 66 04/15/2023 9:21 AM CONVENTIONS RESERVATIONIST Temperature 36.4 C (97.6 F) 04/15/2023 1:56 AM CONVENTIONS RESERVATIONIST Respiratory Rate 16 04/15/2023 9:21 AM CONVENTIONS RESERVATIONIST Oxygen Saturation 99% 04/15/2023 9:21 AM CONVENTIONS RESERVATIONIST RA Inhaled Oxygen Concentration - - Weight 63.5 kg (140 lb) 04/15/2023 1:56 AM CONVENTIONS RESERVATIONIST Height 167.6 cm (5' 6 ) 04/15/2023 1:56 AM CONVENTIONS RESERVATIONIST Body Mass Index 22.6 04/15/2023 1:56 AM CONVENTIONS RESERVATIONIST Procedures * XR HAND LEFT 3VW OR MORE(Performed 04/15/2023) Performed for Laceration of left hand without foreign body, initial encounter Results * XR HAND LEFT 3VW OR MORE (04/15/2023 8:13 AM CONVENTIONS RESERVATIONIST) Anatomical Region Laterality Modality Wrist / Hand Radiographic Marcy ging 04/15/2023 8:18 AM CONVENTIONS RESERVATIONIST Impressions 04/15/2023 8:29 AM CONVENTIONS RESERVATIONIST IMPRESSION: Laceration of the soft tissues of the ventral fourth and fifth digit proximal phalanges. No acute osseous abnormality. No retained radiopaque foreign bodies. Report dictated by Kirt Zelaya MD (resident physician in radiology). IMICHAEL MD have personally reviewed and interpreted this examination/study. > Interpreting Provider: MICHAEL WALLIS MD on 04/15/2023 8:29 AM Narrative 04/15/2023 8:29 AM CONVENTIONS RESERVATIONIST PROCEDURE: XR HAND LEFT 3VW OR MORE, DATE/TIME OF EXAM: 04/15/2023 8:14 AM, LOCATION [facility] INDICATION: S61.412A: Laceration of left hand without foreign body, initial encounter ADDITIONAL CLINICAL INFORMATION: Ordering Provider Reason For Exam: laceration to 4/5 with track laminating machine tender COMPARISON: None. FINDINGS: Nonstandard positioning limits evaluation [...] MORE, DATE/TIME OF EXAM: 38:14 AM, LOCATION [facility] INDICATION: S61.412A: Laceration of left hand without [...] bodies. Report dictated by Kirt Zelaya MD (resident physician in radiology). I, MICHAEL WALLIS MD have personally reviewed and interpreted this examination/study. > Interpreting Provider: MICHAEL WALLIS MD on 04/15/2023 8:29 AM Yuriy Randolph MD DIAGNOSTIC IMAGING O [facility]
== END 2024-06-30 16:00 | disposition home or self-care (01) ==
PROVIDERS: Emergency Provider Emergency Medicine
DX: J01.90 Acute sinusitis, unspecified (principal); F17.200 Nicotine dependence, unspecified, uncomplicated; Z20.822 Contact with and (suspected) exposure to COVID-19
CPT/HCPCS: 87637; 87651; 99283

== ENCOUNTER 2024-09-18 05:27 | Emergency (ER) | payer OTHER, SELFPAY ==
[2024-09-18 05:28] VITALS: BP 142/98; PULSE 93; RESP 18; TEMP 36.1; O2SAT 100
--- OUTSIDE RECORDS SUMMARY | 2024-09-18 05:29 | XMS_ITS | Clinical Summary ---
Author Organization [facility] Address [address] [place] [address] Care Team Providers Care Crook Operator Name Role Phone Unavailable Primary Care Provider Unavailabl e Source Comments [facility],non-owned Affiliates and Associated Physician Practices is amultiple site organization consisting of ambulatory clinics and hospital sitesin [place], [place], [place] and [place]. This disclosure is being madepursuant to the Care Everywhere program and may not contain all information available regarding this patient. Last updated 18.[facility] Allergies No known active allergies Medications * Be aware that medications may not be up to date on this document. Alwaysverify current medications with the patient. acetaminophen (Tylenol) 500 MG tablet Take 1 (one) tablet by mouth every 4 hours as needed for Fever or Pain Maximum allowable Acetaminophen amount = 4 Grams (4000 mg) / 24 hours. 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 Gender Identity Not on file Sexual Orientation Not on file Last Filed Vital Signs Vital Sign Reading Time Taken Comments Blood Pressure 121/87 04/15/2023 9:21 AM BRANCH ACCOUNT MANAGER Pulse 66 04/15/2023 9:21 AM BRANCH ACCOUNT MANAGER Temperature 36.4 C (97.6 F) 04/15/2023 1:56 AM BRANCH ACCOUNT MANAGER Respiratory Rate 16 04/15/2023 9:21 AM BRANCH ACCOUNT MANAGER Oxygen Saturation 99% 04/15/2023 9:21 AM BRANCH ACCOUNT MANAGER RA Inhaled Oxygen Concentration - - Weight 63.5 kg (140 lb) 04/15/2023 1:56 AM BRANCH ACCOUNT MANAGER Height 167.6 cm (5' 6) 04/15/2023 1:56 AM BRANCH ACCOUNT MANAGER Body Mass Index 22.6 04/15/2023 1:56 AM BRANCH ACCOUNT MANAGER Plan of Treatment Health Maintenance Due Date [...] - 19+ 3-dose series) 1997 COVID-19 VACCINE (1 - 2023-2 5 season) 2023 DEPRESSION SCREENING 04/16/2024 INFLUENZA VACCINE (Season Ended) 2024 ZOSTER VACCINE (1 of 2) 2028 HIB [...] on patient's age to complete this topic Insurance * Guarantor: Rodger Dickerson Account Type Relation to Patient Date of Phone Billing Address Personal/Family Self 1980 [address] [place] [address] [facility]
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
--- NOTE | 2024-09-18 05:31 | PC.NURSE ---
DR SANCHEZ AT THE BEDSIDE
== END 2024-09-18 05:43 | disposition home or self-care (01) ==
PROVIDERS: Emergency Provider Internal Medicine Critical Care Medicine; PCP Family Medicine
DX: L03.113 Cellulitis of right upper limb (principal); F17.200 Nicotine dependence, unspecified, uncomplicated; W19.XXXA Unspecified fall, initial encounter
CPT/HCPCS: 99283

== ENCOUNTER 2024-10-06 22:59 | Emergency (ER) | payer OTHER, SELFPAY ==
[2024-10-06 23:00] VITALS: BP 132/99; PULSE 98; RESP 18; TEMP 37; O2SAT 98
[2024-10-06 23:49] LABS: Basophils Absolute Auto 0.05 K/mm3 (0.00-0.10); Basophils Percent Auto 0.8 % (0.0-1.0); Eosinophils Absolute Auto 0.11 K/mm3 (0.02-0.50); Eosinophils Percent Auto 1.8 % (1.0-6.0); Hematocrit 41.6 % (40.0-54.0); Hemoglobin 13.3 g/dL (14.0-18.0); Immature Granulocyte Absolute 0.01 K/mm3 (0.00-0.00); Immature Granulocyte Percent A 0.2 % (0.0-0.0); Lymphocytes Absolute Auto 1.81 K/mm3 (1.10-4.50); Mean Corpuscular Hemoglobin 30.2 pg (27.0-31.0); Mean Corpuscular Volume 94.3 fL (78.0-102.0); Mean Platelet Volume 8.8 fl (8.7-11.0); Monocytes Absolute Auto 0.67 K/mm3 (0.10-0.90); Monocytes Percent Auto 10.7 % (2.0-11.0); Neutrophils Absolute Auto 3.59 K/mm3 (1.70-7.20); Neutrophils Percent Auto 57.5 % (50.0-70.0); Platelet Count Result 370 K/mm3 (150-420); Red Blood Count 4.41 M/mm3 (4.70-6.10); Red Cell Distribution Width 12.5 % (11.6-14.4); White Blood Count 6.2 K/mm3 (4.8-10.8)
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
[2024-10-07 00:07] LABS: Alanine Aminotransferase 43 U/L (6-50); Albumin Level 4.5 g/dL (3.5-5.1); Alkaline Phosphatase 89 U/L (38-126); Anion Gap 8 mmol/L (4-12); Aspartate Amino Transferase 59 U/L (17-59); Bilirubin,Total 0.3 mg/dL (0.2-1.3); Blood Urea Nitrogen 17 mg/dL (9-20); Calcium 9.2 mg/dL (8.4-10.2); Carbon Dioxide 27 mmol/L (22-30); Chloride 104 mmol/L (98-107); Creatine Kinase 626 U/L (55-170); Estimated CRCL calculation 63 ml/min; Estimated Glomerular Filt Rate > 60; Glucose 116 mg/dL (65-110); Osmolality Calculated 290 mOsm/kg (285-295); Potassium 3.8 mmol/L (3.4-5.0); Sodium 139 mmol/L (137-145); Total Protein 7.4 g/dL (6.3-8.2)
[2024-10-07] MEDS: SODIUM CHLORIDE 0.9% IV 1,000 ML 999 ML IV CONT (00:18)
[2024-10-07 01:02] LABS: HIV 1 P24 AG Negative (Negative); HIV 1/2 AB Negative (Negative)
[2024-10-07 01:24] VITALS: BP 119/89; PULSE 84; RESP 16; O2SAT 100
== END 2024-10-07 01:26 ==
PROVIDERS: Emergency Provider Emergency Medicine; PCP Internal Medicine
DX: M62.82 Rhabdomyolysis (principal)
CPT/HCPCS: 36415; 80053; 82550; 85025; 87806; 96360; 99283; J7030

== ENCOUNTER 2024-10-12 13:04 | Emergency (ER) | payer OTHER, SELFPAY ==
--- NOTE | ~2024-10-12 | XR_ITS ---
Left Hand Technique: PA, oblique, and lateral views were obtained. Clinical History: Injury Findings: No acute fracture or dislocation is seen. Osseous alignment is anatomic. Joint spaces are p reserved. Soft tissues are unremarkable. Impression: Unremarkable left hand. Reviewed, dictated and finalized at location M. Impression: Unremarkable left hand.
[2024-10-12 13:05] VITALS: BP 144/89; PULSE 111; RESP 20; TEMP 36.9; O2SAT 95
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
[2024-10-12 13:58] VITALS: BP 138/87; PULSE 94; RESP 20; O2SAT 98
== END 2024-10-12 14:00 | disposition home or self-care (01) ==
PROVIDERS: Emergency Provider Emergency Medicine; PCP Family Medicine
DX: S63.92XA Sprain of unspecified part of left wrist and hand, initial encounter (principal); F17.200 Nicotine dependence, unspecified, uncomplicated; Y04.0XXA Assault by unarmed brawl or fight, initial encounter
CPT/HCPCS: 73130; 99283

== ENCOUNTER 2024-11-08 12:53 | Emergency (ER) | payer OTHER, SELFPAY ==
--- NOTE | ~2024-11-08 | CT_ITS ---
History: Fall with anterior head injury PROCEDURE: CT cervical spine without intravenous contrast. COMPARISON: 04/05/2021 TECHNIQUE: Multiple contiguous axial images of the cervical spine were performed without the administration of i ntravenous contrast. DLP: 138 mGy-cm FINDINGS: Examination is markedly limited by a significant amount of motion artifact rendering of the detection of nondisplaced fractures limited. Specifically at the levels of C3-C7. No acute displaced fractures are present. The bilateral lung apices demonstrate a significant amount of motion artifact, limiting evaluation. Impression: Limited examination secondary to a significant amount of motion artifact without acute displaced frac ture, as detailed above. Reviewed, dictated and finalized at location A. Impression: Limited examination secondary to a significant amount of motion artifact withou t acute displaced fracture, as detailed above.
--- NOTE | ~2024-11-08 | CT_ITS ---
History: Fall PROCEDURE: CT head without contrast. COMPARISON: 08/14/2023 TECHNIQUE: Axial imaging of the head performed from the skull base to the vertex without IV contrast. Sagittal a nd coronal reformations obtained. DLP: 605 mGy-cm FINDINGS: The ventricles are normal in size, shape and position. There is no mass, mass effect or midline shift. There is no abnormal extra-axial fluid collection or intracranial hemorrhage. Visualized paranasal sinuses are clear. The mastoid air cells are well aerated. No acute displaced fractures within the overlying cranium. Impression: No acute intracranial hemorrhage or suspicious mass effect. Reviewed, dictated and finalized at location A. Impression: No acute intracranial hemorrhage or suspicious mass effect.
[2024-11-08 12:53] VITALS: BP 155/100; PULSE 114; RESP 20; TEMP 36.6; O2SAT 100
--- OUTSIDE RECORDS SUMMARY | 2024-11-08 12:55 | XMS_ITS | Clinical Summary ---
Author Organization [facility] Address [address] [place] [address] Care Team Providers Care Music Specialist Name Role Phone Unavailable Primary Care Provider Unavailabl e Source Comments [facility],non-owned Affiliates and Associated Physician Practices is amultiple site organization consisting of ambulatory clinics and hospital sitesin [place], [place], [place] and [place]. This disclosure is being madepursuant to the Care Everywhere program and may not contain all information available regarding this patient. 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 Gender Identity Not on file Sexual Orientation Not on file Last Filed Vital Signs Vital Sign Reading Time Taken Comments Blood Pressure 121/87 04/15/2023 9:21 AM HYDROGEN CELL TENDER Pulse 66 04/15/2023 9:21 AM HYDROGEN CELL TENDER Temperature 36.4 C (97.6 F) 04/15/2023 1:56 AM HYDROGEN CELL TENDER Respiratory Rate 16 04/15/2023 9:21 AM HYDROGEN CELL TENDER Oxygen Saturation 99% 04/15/2023 9:21 AM HYDROGEN CELL TENDER RA Inhaled Oxygen Concentration - - Weight 63.5 kg (140 lb) 04/15/2023 1:56 AM HYDROGEN CELL TENDER Height 167.6 cm (5' 6) 04/15/2023 1:56 AM HYDROGEN CELL TENDER Body Mass Index 22.6 04/15/2023 1:56 AM HYDROGEN CELL TENDER Plan of Treatment Health Maintenance Due Date [...] of 3 - 19+ 3-dose series) 1997 HPV VACCINE (1 - 3-dose SCDM series) 2005 COVID-19 VACCINE (1 - 2023-2 5 season) 2023 DEPRESSION SCREENING 04/16/2024 INFLUENZA VACCINE (#1) 2024 ZOSTER VACCINE (1 of 2) 2028 [...] patient's age to complete this topic Insurance [facility]
--- OUTSIDE RECORDS SUMMARY | 2024-11-08 12:55 | XMS_ITS | Clinical Summary ---
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[employer] Gender Identity Not on file Sexual Orientation Not on file Plan of Treatment Health Maintenance Due Date Last Done Comments Colorectal Cancer Screening Colonoscopy (10 Years) 1978 Annual Physical 1981 Hepatitis C 1996 DTaP, Tdap and Td Vaccines ( 1 - Tdap) 1997 Hepatitis B Vaccines (1 of 3 - 19+ 3-dose series) 1997 HPV Vaccines (1 - 3-dose SCD M series) 2005 COVID-19 Vaccine (2023-2 5 season) 2023 Meningococcal B Vaccine Aged Out No l onger eligible based on patient's age to complete this topic Meningococcal Vaccine Aged Out No clinton stephanie eligible based on patient's age to complete this topic Pneumococcal Vaccine: Pediat rics (0 to 5 Years) and At-Risk Patients (6 to 49 Years) Aged Out No longer eligible b ased on patient's age to complete this topic RSV Immunizations Under 20 Months Aged Out No longer eligible based on patient's age to complete this topic
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
--- OUTSIDE RECORDS SUMMARY | 2024-11-08 13:31 | XMS_ITS | Clinical Summary ---
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
--- OUTSIDE RECORDS SUMMARY | 2024-11-08 13:31 | XMS_ITS | Clinical Summary ---
Author Organization [facility] Address [address] [place] [address] Care Team Providers Care Hand Plate Stacker Name Role Phone Unavailable Primary Care Provider Unavailabl e Source Comments [facility],non-owned Affiliates and Associated Physician Practices is amultiple site organization consisting of ambulatory clinics and hospital sitesin [place], [place], [place] and [place]. This disclosure is being madepursuant to the Care Everywhere program and may not contain all information available regarding this patient. Last updated 18.[facility] Allergies No known active allergies Medications * [...] on file Legal Sex Male 11:04 AM FISCAL ACCOUNTING CLERK Gender Identity Not on file Sexual Orientation Not on file Last Filed Vital Signs Vital Sign Reading Time Taken Comments Blood Pressure 121/87 04/15/2023 9:21 AM FISCAL ACCOUNTING CLERK Pulse 66 04/15/2023 9:21 AM FISCAL ACCOUNTING CLERK Temperature 36.4 C (97.6 F) 04/15/2023 1:56 AM FISCAL ACCOUNTING CLERK Respiratory Rate 16 04/15/2023 9:21 AM FISCAL ACCOUNTING CLERK Oxygen Saturation 99% 04/15/2023 9:21 AM FISCAL ACCOUNTING CLERK RA Inhaled Oxygen Concentration - - Weight 63.5 kg (140 lb) 04/15/2023 1:56 AM FISCAL ACCOUNTING CLERK Height 167.6 cm (5' 6) 04/15/2023 1:56 AM FISCAL ACCOUNTING CLERK Body Mass Index 22.6 04/15/2023 1:56 AM FISCAL ACCOUNTING CLERK Plan of Treatment Health Maintenance Due Date [...] patient's age to complete this topic Insurance [facility]
[2024-11-08 14:50] VITALS: BP 127/88; PULSE 88; RESP 16; O2SAT 99
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
== END 2024-11-08 14:55 ==
PROVIDERS: Emergency Provider Internal Medicine Critical Care Medicine; PCP Family Medicine
DX: F41.9 Anxiety disorder, unspecified (principal); S09.90XA Unspecified injury of head, initial encounter; W19.XXXA Unspecified fall, initial encounter
CPT/HCPCS: 70450; 72125; 82948; 99284

== ENCOUNTER 2025-03-01 22:40 | Inpatient (IN) | payer OTHER, SELFPAY ==
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
[2025-03-01 22:40] VITALS: BP 119/85; PULSE 142; RESP 25; TEMP 34.2; O2SAT 100; O2SAT 99
[2025-03-01 22:59] VITALS: PULSE 136
[2025-03-01 23:00] VITALS: TEMP 34.2
[2025-03-01] MEDS: LACTATED RINGERS 1,000 ML 999 ML IV CONT (23:00)
[2025-03-02] VITALS (17 sets, daily range): BP systolic 99–126; BP diastolic 71–86; PULSE 73–155; RESP 12–22; TEMP 36.3–36.9; O2SAT 96–99; BMI 19.9
--- NOTE | 2025-03-02 | ECHO_ITS ---
Patient Info Name: Rodger Dickerson Age: 44 years : 1980 Gender: Male Ht: 68 in Wt: 137 lbs BSA: 1.72 m2 HR: 75 bpm BP: 103 / 74 mmHg Technical Quality: Good Exam Date: 03/02/2025 11:33 AM Patient Status: I Admit Date: 03/02/2025 Exam Type: CA echo doppler color flow Complete two-dimensional, color flow and Doppler transthoracic echocardiogram is performed. Staff Referring Physician: Jose L Burgos Nuclear Medicine Technologist: Nancy Lucas Attending Provider: Helene Prince Summary 1. Complete two-dimensional, color flow and Doppler transthoracic echocardiogram is performed. 2. Left ventricular chamber dimension is normal. 3. Left ventricular systolic function is normal, estimated at 55-60. 4. The left ventricular diastolic function is grade I diastolic dysfunction. 5. E/e' 5 is not elevated. 6. There is mild mitral valve regurgitation. 7. There is mild tricuspid valve regurgitation. 8. No pulmonary hypertension, estimated pulmonary arterial systolic pressure is 37 mmHg. Left Ventricle E/e' 5 is not elevated. Left ventricular chamber dimension is normal. Left ventricular systolic function is normal, estimated at 55-60. The left ventricular diastolic function is grade I diastolic dysfunction. Right Ventricle Right ventricular chamber dimension is normal. Right ventricular systolic function is normal. Left Atria Left atrial chamber dimension is normal. Right Atria Right atrial chamber dimension is normal. Aortic Valve The aortic valve is trileaflet. There is no aortic valve stenosis. There is no aortic valve regurgitation. Pulmonic Valve There is no pulmonic regurgitation. Mitral Valve There is no mitral valve stenosis. There is mild mitral valve regurgitation. Tricuspid Valve There is mild tricuspid valve regurgitation. No pulmonary hypertension, estimated pulmonary arterial systolic pressure is 37 mmHg. Pericardium/Pleural There is no pericardial effusion. Inferior Vena Cava Normal inferior vena cava with >50% collapse upon inspiration consistent with normal right atrial pressure, 5 mmHg. Aorta The aortic root size at the sinus of Valsalva is normal. Left Ventricular Outflow Tract Name Value Normal LVOT 2D LVOT Diameter 2.1 cm LVOT Doppler LVOT Peak Velocity 91 cm/s LVOT Peak Gradient 3 mmHg LVOT Mean Gradient 1 mmHg LVOT VTI 11 cm LVOT VTI/AV VTI Ratio 0.6 LVOT Stroke Volume 41 ml LVOT CO 4.8 l/min LVOT CI 2.8 l/min/m2 Pulmonic Valve Name Value Normal PV Doppler PV Peak Velocity 73 cm/s PV Peak Gradient 2 mmHg Mitral Valve Name Value Normal MV Regurgitation Doppler MR Peak Gradient 92 mmHg MV Diastolic Function MV E Peak Velocity 65 cm/s MV A Peak Velocity 79 cm/s MV E/A 0.8 MV Decel Time (PW) 109 ms MV Annular TDI MV E/e' (Septal) 5.5 MV E/e' (Lateral) 6.1 MV E/e' (Average) 5.8 Tricuspid Valve Name Value Normal TV Regurgitation Doppler TR Peak Velocity 285 cm/s TR Peak Gradient 25 mmHg Estimated PAP/RSVP RA Pressure 5 mmHg <=5 PA Systolic Pressure 37 mmHg <36 RV Systolic Pressure 37 mmHg <36 TV Annular TDI TV Lateral María s' Velocity 9.2 cm/s >=9.5 Aortic Valve Name Value Normal AV Doppler AV Peak Velocity 118 cm/s AV Peak Gradient 6 mmHg AV Mean Gradient 3 mmHg AV VTI 20 cm AV Area (Cont Eq VTI) 2.0 cm2 >=3.0 AV Area (Cont Eq Chicho) 2.8 cm2 AV DI (Chicho) 0.76 AV Regurgitation 2D LVOT Area 3.6 cm2 Ventricles Name Value Normal LV Dimensions 2D/MM IVS Diastolic Thickness (2D) 1.1 cm 0.6-1.0 LVID Diastole (2D) 4.2 cm 4.2-5.8 LVIW Diastolic Thickness (2D) 1.1 cm 0.6-1.0 LVID Systole (2D) 2.6 cm 2.5-4.0 LVOT Diameter 2.1 cm LV Mass (2D Cubed) 146.07 g 88.00-224.00 LV Mass Index (2D Cubed) 85 g/m2 49-115 Relative Wall Thickness (2D) 0.51 <=0.42 LV Fractional Shortening/Ejection Fraction 2D/MM LV Fractional Shortening (2D) 36 % 25-43 LV EF (2D Teichholz) 66 % LV Diastolic Volume (4C MOD) 93 ml LV EF (4C MOD) 53 % LV Diastolic Volume (2C MOD) 107 ml LV EF (2C MOD) 47 % LV Diastolic Volume (BP MOD) 100 ml 62-150 LV Diastolic Volume Index (BP MOD) 58 ml/m2 34-74 LV Systolic Volume (BP MOD) 50 ml 21-61 LV Systolic Volume Index (BP MOD) 29 ml/m2 11-31 LV EF (BP MOD) 50 % 52-72 LV Diastolic Length (4C) 9.4 cm LV Systolic Length (4C) 7.8 cm LV Stroke Volume (4C MOD) 49 ml Atria Name Value Normal LA Dimensions LA Volume (4C A-L) 40 ml LA Volume (BP A-L) 48 ml RA Dimensions RA Systolic Major [place] Length (4C) 4.0 cm 2.1-2.7 RA Area (4C) 12.6 cm2 <=18.0 Report Signatures
--- OUTSIDE RECORDS SUMMARY | 2025-03-02 00:06 | XMS_ITS | Clinical Summary ---
Author Organization [facility] Address [address] [place] [address] Care Team Providers Care Route Sales Manager Name Role Phone Unavailable Primary Care Provider Unavailabl e Source Comments [facility] [employer],non-owned Affiliates and Associated Physician Practices is amultiple site organization consisting of ambulatory clinics and hospital sitesin [place], [place], [place] and [place]. This disclosure is being madepursuant to the Care Everywhere program and may not contain all information available regarding this patient. 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 Gender Identity Not on file Sexual Orientation Not on file Last Filed Vital Signs Vital Sign Reading Time Taken Comments Blood Pressure 121/87 04/15/2023 9:21 AM WHOLESALE AGRONOMIST Pulse 66 04/15/2023 9:21 AM WHOLESALE AGRONOMIST Temperature 36.4 C (97.6 F) 04/15/2023 1:56 AM WHOLESALE AGRONOMIST Respiratory Rate 16 04/15/2023 9:21 AM WHOLESALE AGRONOMIST Oxygen Saturation 99% 04/15/2023 9:21 AM WHOLESALE AGRONOMIST RA Inhaled Oxygen Concentration - - Weight 63.5 kg (140 lb) 04/15/2023 1:56 AM WHOLESALE AGRONOMIST Height 167.6 cm (5' 6) 04/15/2023 1:56 AM WHOLESALE AGRONOMIST Body Mass Index 22.6 04/15/2023 1:56 AM WHOLESALE AGRONOMIST Plan of Treatment Health Maintenance Due Date [...] of 3 - 19+ 3-dose series) 1997 DEPRESSION SCREENING 04/16/2024 COVID-19 VACCINE (1 - 2023-2 5 season) 2024 INFLUENZA VACCINE (#1) 2024 ZOSTER VACCINE (1 [...] patient's age to complete this topic Insurance [facility]
--- OUTSIDE RECORDS SUMMARY | 2025-03-02 00:06 | XMS_ITS | Clinical Summary ---
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
[2025-03-02 00:30] LABS: Hematocrit 38.9 % (42.0-52.0); Hemoglobin 13.1 g/dL (14.0-18.0); Mean Corpuscular HGB Conc 33.7 g/dl (32-36); Mean Corpuscular Hemoglobin 31.0 pg (26-34); Mean Corpuscular Volume 92.2 fl (80-100); Platelet Count Result 330 k/mm3 (150-375); Red Blood Count 4.22 M/mm3 (4.6-6.20); White Blood Count 23.4 K/mm3 (4.5-10.0)
[2025-03-02] MEDS: LACTATED RINGERS 2,000 ML 999 ML IV CONT (00:32)
--- NOTE | 2025-03-02 00:35 | ECG_ITS ---
Test Date: 2025-03-02 00:41:45 Measurements Intervals [place] Rate: 145 P: 0 MD: 0 QRS: 75 QRSD: 89 T: 57 QT: 294 QTc: 458 Interpretive Statements ATRIAL FIBRILLATION WITH RAPID VENTRICULAR RESPONSE VOLTAGE CRITERIA FOR LEFT VENTRICULAR HYPERTROPHY Electronically Signed On 03-02-2025 11:23:14 GREEN HIDE INSPECTOR by Javier Wilson D.O
[2025-03-02 00:39] LABS: PCO2 VBG 41.4 mmHg (42.0-48.0); PO2 VBG 93.1 mmHg (35.0-45.0); pH VBG 7.430 (7.300-7.400)
[2025-03-02 00:40] LABS: Alanine Aminotransferase 479 U/L (6-50); Albumin Level 4.4 g/dL (3.5-5.1); Alkaline Phosphatase 119 U/L (38-126); Anion Gap 6 mmol/L (4-12); Aspartate Amino Transferase 666 U/L (17-59); Bilirubin,Total 0.3 mg/dL (0.2-1.3); Blood Urea Nitrogen 13 mg/dL (9-20); Calcium 8.9 mg/dL (8.4-10.2); Carbon Dioxide 29 mmol/L (22-30); Chloride 106 mmol/L (98-107); Estimated CRCL calculation 56 ml/min; Estimated Glomerular Filt Rate 60; Glucose 112 mg/dL (65-110); HCO3 VBG 26.9 mEq/l (24.0-30.0); Lipase 68 U/L (23-300); Magnesium 2.6 mg/dL (1.6-2.3); Potassium 3.9 mmol/L (3.4-5.0); Sodium 141 mmol/L (137-145); Total Protein 7.1 g/dL (6.3-8.2)
[2025-03-02 00:46] LABS: INR 1.1; Prothrombin Time 14.4 Seconds (11.1-14.7)
[2025-03-02 00:47] LABS: Partial Thromboplastin Time 25.6 Seconds (22.3-36.8)
[2025-03-02 00:48] LABS: Add Urine Microscopic? YES; Appearance Urine Clear (Clear); Glucose Urine UA 3+ mg/dL (Negative); Leukocyte Esterase Ur Negative LEU/UL (Negative); Need Manual Microscopic Reviewed; Nitrate Urine Negative (Negative); Specific Grav Ur 1.020 (1.001-1.035)
[2025-03-02 00:58] LABS: Band Neutrophils Percent 5 % (0-6); Lymphocytes Absolute Manual 2.10 K/mm3 (1.1-4.5); Lymphocytes Percent Manual 9.0 % (18-44); Monocytes Absolute Manual 2.10 K/mm3 (0.1-0.90); Monocytes Percent Manual 9 % (3-9); Neutrophils Absolute Manual 19.18 K/mm3 (1.3-6.7); Neutrophils Percent Manual 77 % (46-73); Total Cells Counted 100
[2025-03-02 00:59] LABS: Giant Platelets Present
[2025-03-02 01:01] LABS: Schistocytes None Seen; Smudge Cells PRESENT
[2025-03-02 01:03] LABS: NT Pro B Type Natriuretic Pept 117 pg/mL (19.9-100); Troponin I 0.152 ng/mL (0.000-0.034)
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
[2025-03-02 01:14] LABS: Creatine Kinase 316 U/L (55-170)
[2025-03-02 01:26] LABS: Thyroid Stimulating Hormone Reflex 0.526 uIU/mL (0.465-4.68)
[2025-03-02 02:01] LABS: Cannabinoid Screen Urine Positive (Negative)
[2025-03-02] MEDS: CEFEPIME 2 GM in SODIUM CHLORIDE 0.9% IV 50 ML 100 ML IVPB ×2 (02:55→10:32)
--- NOTE | 2025-03-02 03:19 | ECG_ITS ---
Test Date: 2025-03-02 03:19:31 Measurements Intervals [place] Rate: 102 P: 68 NM: 140 QRS: 80 QRSD: 94 T: 65 QT: 355 QTc: 464 Interpretive Statements SINUS TACHYCARDIA VOLTAGE CRITERIA FOR LVH Electronically Signed On 03-02-2025 11:23:31 CHILDREN'S ENTERTAINER by Javier Wilson D.O
[2025-03-02 03:55] LABS: Troponin I 0.389 ng/mL (0.000-0.034)
[2025-03-02] MEDS: LACTATED RINGERS 1,000 ML 125 ML IV CONT ×3 (04:53→20:44)
[2025-03-02] MEDS: DOXYCYCLINE IV 100 MG in SODIUM CHLORIDE 0.9% IV 100 ML IVPB (04:59)
--- NOTE | 2025-03-02 05:24 | WPCEDHO ---
ED Hand Off Checklist All vitals saved:yes IV Site documented:yes All med administrations documented:yes Triage Note Triage Note Pt presents to ED via EMS c/o 03/01/25 22:40 possible OD. pt was found in [place]ed area with packages of unopened Narcan mumbling to himself. Pt axillary temp was 95. 9 F. Per EMS, warm fluids were administered. Per EMS, BS is 456. Per EMS, dried blood was found around mouth but pt denied trauma to area. Pt is homeless. Allergies No Known Allergies Allergy (Verified 11/08/24 14:04) Active Medications including assessments/comments Lactated Ringer's (Lr - Lactated Ringers Iv) 1,000 mls @ 125 mls/hr IV CONT .Q8H DARSHAN Last Admin: 03/02/25 04:53 Dose: 125 mls/hr Documented By: PHILLIP Infusion/Titration Document 03/02/25 04:53 PHILLIP (Rec: 03/02/25 04:53 PHILLIP [id number]) Intake IV Site Peripheral Access Left Antecubital Container Volume 1,000 Waste Amount 0 Dosing Infusion Rate 125 Cumulative Dose Not Applicable Increase/Decrease Started Elapsed Time Elapsed Time ( 0m minutes) Administered/Completed Medications Discontinued Medications Diltiazem HCl (Diltiazem Hcl Inj 25 Mg/5 Ml Vial) 10 mg IV PUSH ONCE STA Stop: 03/02/25 01:15 Last Admin: 03/02/25 02:30 Dose: 10 mg Documented By: PHILLIP Comments: pt converted to nsr 104. ed aware. Lactated Ringer's (Lr - Lactated Ringers Iv) 1,000 mls @ 999 mls/hr IV CONT .Q1H1M STA Stop: 03/02/25 00:46 Last Infusion: 03/02/25 02:26 Dose: Infused Documented By: Admin: 03/01/25 23:00 Dose: 999 mls/hr Documented By: PHILLIP Lactated Ringer's (Lr - Lactated Ringers Iv) 2,000 mls @ 999 mls/hr IV CONT .Q2H1M STA Stop: 03/02/25 02:06 Last Infusion: 03/02/25 03:51 Dose: Infused Documented By: Infusion: 03/02/25 02:27 Dose: 999 mls/hr Documented By: Admin: 03/02/25 00:32 Dose: 999 mls/hr Documented By: W Cefepime HCl 2 gm/ Sodium (Chloride) 50 mls @ 100 mls/hr IVPB ONCE STA Stop: 03/02/25 02:53 Last Infusion: 03/02/25 03:49 Dose: Infused Documented By: Admin: 03/02/25 02:55 Dose: 100 mls/hr Documented By: SRW Doxycycline Hyclate 100 mg/ (Sodium Chloride) 100 mls @ 100 mls/hr IVPB ONCE STA Stop: 03/02/25 05:04 Last Admin: 03/02/25 04:59 Dose: 100 mls/hr Documented By: W Interventions/Assessments Cardiac Monitoring Start: 03/01/25 22:40 Freq: Status: Complete Protocol: Document 03/01/25 22:59 KKR (Rec: 03/01/25 22:59 KKR [id number]) Data Entry Manager Assessment Data Entry Manager Yes Applied Pulse Rate (60-100) 136 H EKG Rythm Sinus Tachycardia IV / Saline Lock, Insert Start: 03/01/25 22:40 Freq: Status: Active Protocol: Document 03/02/25 04:08 SRW (Rec: 03/02/25 05:24 SRW [id number]) IV Assessment Peripheral Access Left Antecubital IV Catheter Access Initiated IV Insertion Date 03/02/25 IV Insertion Time 05:24 Catheter Gauge 20 IV Insertion 2 Attempts Ultrasound Used for No Placement IV Site Assessment WNL IV Care and WNL Maintenance PA: Cardiovascular Assessment Start: 03/01/25 22:40 Freq: Status: Active Protocol: Document 03/01/25 22:40 KKR (Rec: 03/01/25 22:58 KKR [id number]) Cardiovascular Assessment Cardiovascular Nausea Symptoms Skin Description Cool Jugular Vein None Distention Chest Pain Assessment Chest Pain Intensity 0 PA: Neurological Assessment Start: 03/01/25 22:40 Freq: Status: Active Protocol: Document 03/01/25 22:40 KKR (Rec: 03/01/25 22:58 KKR [id number]) [place] Coma Scale Eyes Open Verbal Oriented and Alert Motor Follows Commands [place] Coma Total 15 Score Neurological Assessment Level of Alert,Awake Consciousness Arousable to Verbal Orientation Oriented to Person,Oriented to Place,Oriented to Time Neurological Nausea/Vomiting Symptoms Behavior Appropriate,Cooperative Patient Able to Comprehend Comprehension Memory Description Intact Ability to Maintain Normal Balance Facial Symmetry Symmetrical Speech Pattern Clear Ability to Swallow Normal PA: Respiratory Assessment Start: 03/01/25 22:40 Freq: Status: Active Protocol: Document 03/02/25 00:35 SRW (Rec: 03/02/25 00:36 SRW [id number]) Respiratory Assessment Effort Normal Cough Description None Oxygen Delivery Oxygen Delivery Room Air Last Vital Signs Temperature 97.4 F L 03/02/25 00:36 Pulse Rate 73 03/02/25 04:08 Respiratory Rate 20 03/02/25 04:08 Pulse Oximetry 96 03/02/25 04:08 Blood Pressure 103/74 03/02/25 04:08 Blood Pressure Mean 83 03/02/25 04:08 Blood Pressure Position Supine 03/02/25 04:08 Oxygen Delivery Room Air 03/02/25 00:35 Weight 62.2 kg 03/01/25 22:40 Last Result - Abnormals Only WBC 23.4 K/mm3 (4.5-10.0) H 03/02/25 00:20 RBC 4.22 M/mm3 (4.6-6.20) L 03/02/25 00:20 Hgb 13.1 g/dL (14.0-18.0) L 03/02/25 00:20 Hct 38.9 % (42.0-52.0) L 03/02/25 00:20 Neutrophils % (Manual) 77 % (46-73) H 03/02/25 00:20 Lymphocytes % (Manual) 9.0 % (18-44) L 03/02/25 00:20 Abs Neuts (Manual) 19.18 K/mm3 (1.3-6.7) H 03/02/25 00:20 Abs Monocytes (Manual) 2.10 K/mm3 (0.1-0.90) H 03/02/25 00:20 VBG pH 7.430 (7.300-7.400) H* 03/02/25 00:20 VBG pCO2 41.4 mmHg (42.0-48.0) L 03/02/25 00:20 VBG pO2 93.1 mmHg (35.0-45.0) H 03/02/25 00:20 Glucose 112 mg/dL (65-110) H 03/02/25 00:20 POC Capillary Glucose 110 mg/dl (65-105) H 03/02/25 00:10 Magnesium 2.6 mg/dL (1.6-2.3) H 03/02/25 00:20 AST 666 U/L (17-59) H 03/02/25 00:20 ALT 479 U/L (6-50) H 03/02/25 00:20 Total Creatine Kinase 316 U/L (55-170) H 03/02/25 00:20 Troponin I 0.389 ng/mL (0.000-0.034) H* D 03/02/25 03:22 NT-Pro-B Natriuret Pep 117 pg/mL (19.9-100) H 03/02/25 00:20 Urine Protein 1+ mg/dL (Negative) H 03/02/25 00:23 Urine Glucose (UA) 3+ mg/dL (Negative) H 03/02/25 00:23 Ur Amphetamine Screen Positive (Negative) A 03/02/25 00:23 U Cannabinoids Screen Positive (Negative) A 03/02/25 00:23
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
[2025-03-02 05:57] LABS: Alanine Aminotransferase 365 U/L (6-50); Albumin Level 3.3 g/dL (3.5-5.1); Alkaline Phosphatase 88 U/L (38-126); Anion Gap 3 mmol/L (4-12); Aspartate Amino Transferase 425 U/L (17-59); Bilirubin,Total 0.2 mg/dL (0.2-1.3); Blood Urea Nitrogen 14 mg/dL (9-20); Calcium 8.3 mg/dL (8.4-10.2); Carbon Dioxide 28 mmol/L (22-30); Chloride 107 mmol/L (98-107); Estimated CRCL calculation 65 ml/min; Estimated Glomerular Filt Rate > 60; Glucose 64 mg/dL (65-110); Magnesium 2.2 mg/dL (1.6-2.3); Potassium 3.8 mmol/L (3.4-5.0); Sodium 138 mmol/L (137-145); Total Protein 5.7 g/dL (6.3-8.2)
[2025-03-02] MEDS: VANCOMYCIN 1,500 MG/NS 500 ML 1,500 MG/500 ML BAG 250 MG IVPB (06:15)
--- NOTE | 2025-03-02 06:37 | ADMGEN ---
This patient, Rodger Dickerson, was admitted to IMU Room 206-02 at 0555. Patient/family oriented to hospital policies and general routines including ID bracelet, bed and alarms, visiting hours, pain management, procedures, bathroom and other care routines, personal items, smoking policy, room service/diet, and visiting hours. Information on how to activate the Rapid Response Team has been discussed. Patient/Family are encouraged to report perceived risks to care and to ask questions if they do not understand what they are told or what they should do.
[2025-03-02 07:30] LABS: Procalcitonin 0.2 ng/mL
[2025-03-02] MEDS: metroNIDAZOLE 500 MG/ISO 100ML 500 MG/100 ML BAG 100 MG IVPB ×2 (08:32→14:06)
[2025-03-02 10:19] LABS: Hematocrit 33.4 % (42.0-52.0); Hemoglobin 10.8 g/dL (14.0-18.0); Immature Granulocyte Percent A 0.4 % (0-0.5); Lymphocytes Absolute Auto 3.44 K/mm3 (0.9-3.2); Mean Corpuscular HGB Conc 32.3 g/dl (32-36); Mean Corpuscular Hemoglobin 30.3 pg (26-34); Mean Corpuscular Volume 93.8 fl (80-100); Nucleated Red Blood Cells Absolute Auto 0.000 K/mm3 (0.0-0.012); Nucleated Red Blood Cells Perc 0.0 % (0.0-0.2); Platelet Count Result 227 k/mm3 (150-375); Red Blood Count 3.56 M/mm3 (4.6-6.20); White Blood Count 10.7 K/mm3 (4.5-10.0)
[2025-03-02 10:53] LABS: Troponin I 0.581 ng/mL (0.000-0.034)
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
--- NOTE | 2025-03-02 21:45 | PC.NURSE ---
This patient, Rodger Dickerson, was transferred to [[id number] ] on 03/02/25 at 2145. Personal belongings sent with patient. Report given to [Anamaria de la paz ]. Appropriate documentation sent with patient.
--- NOTE | 2025-03-02 21:58 | PC.NURSE ---
Transfer received from IMU per bed. Report received from NICOLE Livingston. Patient oriented to unit and safety. Call light in reach.
[2025-03-03] MEDS: LACTATED RINGERS 1,000 ML 125 ML IV CONT (04:30)
[2025-03-03 04:47] LABS: Hematocrit 36.3 % (42.0-52.0); Hemoglobin 11.8 g/dL (14.0-18.0); Immature Granulocyte Percent A 0.3 % (0-0.5); Lymphocytes Absolute Auto 2.40 K/mm3 (0.9-3.2); Mean Corpuscular HGB Conc 32.5 g/dl (32-36); Mean Corpuscular Hemoglobin 30.6 pg (26-34); Mean Corpuscular Volume 94.0 fl (80-100); Nucleated Red Blood Cells Absolute Auto 0.000 K/mm3 (0.0-0.012); Nucleated Red Blood Cells Perc 0.0 % (0.0-0.2); Platelet Count Result 247 k/mm3 (150-375); Red Blood Count 3.86 M/mm3 (4.6-6.20); White Blood Count 9.3 K/mm3 (4.5-10.0)
[2025-03-03 05:00] LABS: Alanine Aminotransferase 227 U/L (6-50); Albumin Level 3.2 g/dL (3.5-5.1); Alkaline Phosphatase 89 U/L (38-126); Anion Gap 1 mmol/L (4-12); Aspartate Amino Transferase 103 U/L (17-59); Bilirubin,Total 0.3 mg/dL (0.2-1.3); Blood Urea Nitrogen 15 mg/dL (9-20); Calcium 8.4 mg/dL (8.4-10.2); Carbon Dioxide 30 mmol/L (22-30); Chloride 102 mmol/L (98-107); Estimated CRCL calculation 81 ml/min; Estimated Glomerular Filt Rate > 60; Glucose 86 mg/dL (65-110); Magnesium 2.1 mg/dL (1.6-2.3); Potassium 3.9 mmol/L (3.4-5.0); Sodium 133 mmol/L (137-145); Total Protein 5.5 g/dL (6.3-8.2)
[2025-03-03 06:04] VITALS: BP 109/74; PULSE 80; RESP 20; TEMP 36.4; O2SAT 95
--- NOTE | 2025-03-03 07:42 | P.PNIM_ITS ---
Progress Note: A&P Assessment and Plan (1) Polysubstance use disorder: Code(s): F19.90 - Other psychoactive substance use, unspecified, uncomplicated Status: Acute (2) Amphetamine abuse: Code(s): F15.10 - Other stimulant abuse, uncomplicated Status: Acute Plan Ground-glass opacities on CT chest -patient ground-glass opacities on chest CT, right upper lung airspace disease however he is asymptomatic -procalcitonin 0.2, which is negative. Also no sputum production so less likely pneumonia. Will continue antibiotics for 1 more day and re-evaluate, considering his hypothermia on presentation and leukocytosis, however he may not need antibiotics -antibiotics: De-escalating from vancomycin/cefepime/Flagyl/doxycycline to au gmentin -significant improvement of leukocytosis -IV fluids: Continue LR 125 cc/hr -lactate normal Elevated troponin, likely supply/demand mismatch -elevated to 0.581, no chest pain, ACS ruled out -elevated troponin likely secondary to stress from drug abuse methamphetamine -TSH within normal limits, procalcitonin -echocardiogram shows EF 55-60%, grade 1 diastolic dysfunction, no pulmonary hypertension -heart failure ruled out, patient does not have any heart failure symptoms Transaminitis -LFTs elevated AST and ALT -patient has history of polysubstance abuse, likely drug-induced -will repeat labs tomorrow Hypothermia, resolved -secondary to cold exposure, was found outside -body temperature normalized Polysubstance abuse -UDS positive for amphetamine and cannabis -case management consult, resources given for substance abuse Diet: Heart healthy DVT prophylaxis: Ambulatory Code status: Full code Disposition: Home in 1-2 days, downgrade to medical floor Subjective Date/time seen: 03/03/25 07:42 Interval history: No acute events overnight. Patient reports upon discharge will go to his friend's house Review of Systems Review of Systems: 10 point ROS complete, negative other th an what is specified in HPI. All systems reviewed & are unremarkable except as noted in HPI and below (Subjective) Exam Narrative: - GENERAL: Pleasant male in No acute di stress. - EYES: EOMI. Anicteric. - HENT: Moist mucous membranes. - LUNGS: Clear to auscultation bilateral ly, no wheezing, rhonchi, or rales. - CARDIOVASCULAR: Regular rate and rhyth m. - ABDOMEN: Soft, non-tender and non-dist ended. - EXTREMITIES: No edema. Peripheral puls es 2+. - NEUROLOGIC: No focal neurological defi cits. CN II-XII grossly intact. - PSYCHIATRIC: Awake, Alert and oriented x 3. Appropriate mood and affect. Const: General: comfortable and no acute distress Other: A&O x3, anxious affect HENMT: Mouth: Yes dry mucous membranes Eyes: Pupils: Equal, round and reactive pupils present Neck: Neck: supple Resp: Effort & Inspection: normal respiratory effort Auscultation: clear to auscultation bilaterally Cardio: Rate: regular rate Rhythm: regular rhythm GI: Inspection: non-distended Auscultation: normal bowel sounds : General: Yes bladder normal to palpation Neuro: Cranial nerves: Yes Equal, round and reactive pupils present Motor exam (neuro): 5/5 motor strength present throughout Extrem: General: no edema Objective Data Vital Signs Vital Signs: Vital Signs - 24 hr 03/02/25 07:52 03/02/25 07:57 03/02/25 07:59 Temperature 98.4 F 98.4 F Pulse Rate 77 77 Respiratory Rate 16 16 Blood Pressure 121/71 121/71 Pulse Oximetry 98 98 Oxygen Delivery Room Air 03/02/25 08:00 03/02/25 09:26 03/02/25 10:00 Temperature Pulse Rate 91 82 Respiratory Rate Blood Pressure Pulse Oximetry 96 Oxygen Delivery Room Air 03/02/25 11:25 03/02/25 11:26 03/02/25 12:00 Temperature 97.5 F L 97.5 F L Pulse Rate 92 92 94 Respiratory Rate 12 12 Blood Pressure 113/86 113/86 Pulse Oximetry 98 98 Oxygen Delivery 03/02/25 13:59 03/02/25 16:00 03/02/25 16:00 Temperature 98.4 F Pulse Rate 83 80 75 Respiratory Rate 14 Blood Pressure 118/74 Pulse Oximetry 99 Oxygen Delivery 03/02/25 20:00 03/02/25 21:02 03/02/25 23:12 Temperature 98.3 F 97.4 F L Pulse Rate 80 80 84 Respiratory Rate 15 15 20 Blood Pressure 115/77 116/73 Pulse Oximetry 97 97 97 Oxygen Delivery Room Air 03/03/25 06:04 Temperature 97.6 F Pulse Rate 80 Respiratory Rate 20 Blood Pressure 109/74 Pulse Oximetry 95 Oxygen Delivery Intake/Output Intake/Output: Intake & Output 02/28/25 03/01/25 03/02/25 03/03/25 23:59 23:59 23:59 23:59 Intake Total 7151.2 1120.8 Output Total 700 1000 Balance 6451.2 120.8 Meds/Results Medications: Active Medications Generic Name Dose Route Start Last Admin Trade Name Freq PRN Reason Stop Dose Admin Amoxicillin/Clavulanate Potassium 1 tablet 03/02/25 21:00 03/02/25 20:44 Amoxicillin/Clavulanate K 875-125 Mg Tab PO 1 tablet Q12HR DARSHAN Administration Lactated Ringer's 1,000 mls @ 125 mls/hr 03/02/25 04:10 03/03/25 04:30 Lr - Lactated Ringers Iv IV CONT 125 mls/hr .Q8H DARSHAN Administration Perflutren Lipid Microsphere 0 ml 03/02/25 05:43 Perflutren Lipid Microspheres 1.5 Ml Vial Diluted To 10 Ml Total Volume IV PUSH 03/05/25 05:43 ONCE PRN adequate visualization Protocol Radiology Results: ITS Impressions Chest X-Ray 03/02/25 06:15 IMPRESSION: 1. Interstitial pulmonary edema and/or multifocal airspace disease. Head CT 03/02/25 07:36 IMPRESSION: 1. Normal brain. Chest/Abdomen/Pelvis CT 03/02/25 08:07 IMPRESSION: 1. Groundglass opacities and septal thickening in right lung upper lobe, consistent with mild pulmonary edema versus pneumonia. 2. Mild emphysema. Labs Labs: Laboratory Results - last 24 hr 03/02/25 03/03/25 10:07 04:36 WBC 10.7 H 9.3 RBC 3.56 L 3.86 L Hgb 10.8 L 11.8 L Hct 33.4 L 36.3 L MCV 93.8 94.0 MCH 30.3 30.6 MCHC 32.3 32.5 RDW 13.0 13.1 Plt Count 227 247 MPV 8.5 8.8 Immature Gran % (Auto) 0.4 0.3 Neut % (Auto) 57.1 65.9 Lymph % (Auto) 32.0 25.8 [place] % (Auto) 9.2 H 6.4 Eos % (Auto) 0.8 1.0 Baso % (Auto) 0.5 0.6 Lymph # (Auto) 3.44 H 2.40 [place] # (Auto) 1.0 H 0.6 Eos # (Auto) 0.1 0.1 Baso # (Auto) 0.1 0.1 Abs Immat Gran (auto) 0.04 H 0.03 Absolute Neuts (auto) 6.1 6.1 Absolute Nucleated RBC 0.000 0.000 Nucleated RBC % 0.0 0.0 Sodium 133 L Potassium 3.9 Chloride 102 Carbon Dioxide 30 Anion Gap 1 L BUN 15 Creatinine 0.86 Estim Creat Clear Calc 81 Estimated GFR > 60 Glucose 86 Calcium 8.4 Magnesium 2.1 Total Bilirubin 0.3 AST 103 H ALT 227 H Alkaline Phosphatase 89 Troponin I 0.581 H* D Total Protein 5.5 L Albumin 3.2 L Hospitalist MIPS Advance Care Plan I have confirmed that the patient's Advanced Care Plan is present, code status is documented, or surrogate decision maker is listed in patient medical record.: Yes Medication Reconciliation I have utilized all available resources to obtain, update and review the patients current medications (includes all prescriptions, OTC, herbals, cannabis, and nutritional supplements).: Yes
--- NOTE | 2025-03-05 15:27 | P.DS_ITS ---
DS: Admitting Diagnosis Discharge Date 03/03/25 Admitting Diagnosis Unresponsiveness DS: Discharge Diagnosis Discharge Diagnosis (1) Polysubstance use disorder: Code(s): F19.90 - Other psychoactive substance use, unspecified, uncomplicated Status: Acute (2) Amphetamine abuse: Code(s): F15.10 - Other stimulant abuse, uncomplicated Status: Acute Plan Ground-glass opacities on CT chest -patient ground-glass opacities on chest CT, right upper lung airspace disease however he is asymptomatic -procalcitonin 0.2, which is negative. Also no sputum production so less likely pneumonia. Will continue antibiotics for 1 more day and re-evaluate, considering his hypothermia on presentation and leukocytosis, however he may not need antibiotics -antibiotics: De-escalating from vancomycin/cefepime/Flagyl/doxycycline to augmentin -significant improvement of leukocytosis -IV fluids: Continue LR 125 cc/hr -lactate normal Elevated troponin, likely supply/demand mismatch -elevated to 0.581, no chest pain, ACS ruled out -elevated troponin likely secondary to stress from drug abuse methamphetamine -TSH within normal limits, procalcitonin -echocardiogram shows EF 55-60%, grade 1 diastolic dysfunction, no pulmonary hypertension -heart failure ruled out, patient does not have any heart failure symptoms Transaminitis -LFTs elevated AST and ALT -patient has history of polysubstance abuse, likely drug-induced -will repeat labs tomorrow Hypothermia, resolved -secondary to cold exposure, was found outside -body temperature normalized Polysubstance abuse -UDS positive for amphetamine and cannabis -case management consult, resources given for substance abuse Diet: Heart healthy DVT prophylaxis: Ambulatory Code status: Full code Disposition: Home in 1-2 days, downgrade to medical floor DS: Summary Hospital Course Hospital Course: 44-year-old homeless male with polysubstance abuse including alcohol, snorting methamphetamine, tobacco use disorder, marijuana use was found in the [place] unresponsive. EMS documentation does not document who found him. He was found unresponsive, all unopened cases of Narcan, bleeding in his mouth but no other signs of trauma. Patient brought [facility] on 03/02/2025, A&O x3 but does not offer good history. 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 He reports no known medical history. EKG demonstrates AFib with RVR. Temperature 93.6?. Given diltiazem 10 mg IV x1, 3 L lactated Ringer's, Pam Quinonez. Patient converted to normal sinus rhythm, temperature improved. Administer cefepime, vancomycin. WBC 54536, hemoglobin 13.1 platelets 330, INR 1.1, glucose 112, Chem 7 otherwise unremarkable, transaminitis, troponin elevated at 0.152, 0.389. Urinalysis with glucose, 1+ protein, urine drug screen positive for cannabinoids and amphetamines, alcohol level undetectable. CT chest abdomen and pelvis with contrast, CT head revealed no acute findings except for right upper lobe airspace opacities in the lung. Patient denies cough, shortness of breath. Blood cultures obtained. Patient was treated for the following condition: Ground-glass opacities on CT chest -patient ground-glass opacities on chest CT, right upper lung airspace disease however he is asymptomatic -procalcitonin 0.2, which is negative. Also no sputum production so less likely pneumonia. Will continue antibiotics for 1 more day and re-evaluate, considering his hypothermia on presentation and leukocytosis, however he may not need antibiotics -antibiotics: De-escalating from vancomycin/cefepime/Flagyl/doxycycline to augmentin -significant improvement of leukocytosis -IV fluids: Continue LR 125 cc/hr -lactate normal Elevated troponin, likely supply/demand mismatch -elevated to 0.581, no chest pain, ACS ruled out -elevated troponin likely secondary to stress from drug abuse methamphetamine -TSH within normal limits, procalcitonin -echocardiogram shows EF 55-60%, grade 1 diastolic dysfunction, no pulmonary hypertension -heart failure ruled out, patient does not have any heart failure symptoms Transaminitis -LFTs elevated AST and ALT -patient has history of polysubstance abuse, likely drug-induced -will repeat labs tomorrow Hypothermia, resolved -secondary to cold exposure, was found outside -body temperature normalized Polysubstance abuse -UDS positive for amphetamine and cannabis -case management consult, resources given for substance abuse Patient left AMA Time Spent with Patient Time attestation: Total time spent providing and/or coordinating discharge services: 45 minutes Exam Narrative: - GENERAL: Pleasant male in No acute di stress. - EYES: EOMI. Anicteric. - HENT: Moist mucous membranes. - LUNGS: Clear to auscultation bilateral ly, no wheezing, rhonchi, or rales. - CARDIOVASCULAR: Regular rate and rhyth m. - ABDOMEN: Soft, non-tender and non-dist ended. - EXTREMITIES: No edema. Peripheral puls es 2+. - NEUROLOGIC: No focal neurological defi cits. CN II-XII grossly intact. - PSYCHIATRIC: Awake, Alert and oriented x 3. Appropriate mood and affect. Const: General: comfortable and no acute distress Other: A&O x3, anxious affect HENMT: Mouth: Yes dry mucous membranes Eyes: Pupils: Equal, round and reactive pupils present Neck: Neck: supple Resp: Effort & Inspection: normal respiratory effort Auscultation: clear to auscultation bilaterally Cardio: Rate: regular rate Rhythm: regular rhythm GI: Inspection: non-distended Auscultation: normal bowel sounds : General: Yes bladder normal to palpation Neuro: Cranial nerves: Yes Equal, round and reactive pupils present Motor exam (neuro): 5/5 motor strength present throughout Extrem: General: no edema DS: Data Data Completed and Pending Labs on day of discharge: Preliminary micro results at discharge 03/02/25 00:20 Blood Culture - Preliminary Blood 03/02/25 00:20 Blood Culture - Preliminary Blood Discharge Plan Discharge Consulting providers: Ted Frias; Freda Wilson Ramakrishn R.; Raul Jones; Johnny Eugene V. Patient Disposition: Left Against Medical Advice Patient Instructions: A-fib (Atrial Fibrillation) (DC), How to Stop Smoking (DC), Abuse of Alcohol (DC), Acute Hypothermia (DC), Methamphetamine Use Disorder (DC), High Troponin Levels (GEN) Patient Language: Swedish Discharge Medications: No Action No Home Medications Date of admission: 03/02/25 09:08 Primary Care Provider: Henry Friedman Admitting Provider: Helene Prince Attending physician on admission: Filiberto Monzon Condition: Guarded Prognosis
== END 2025-03-03 12:20 | disposition left against medical advice (07) | DRG 770 ==
LOC: ANHED 03-02 04:13 → ANHIMU 03-02 06:48 → ANH2MED 03-03 08:17 → ANHIMU 03-03 08:17
PROVIDERS: Student in an Organized Health Care Education/Training Program; Admitting Provider General Practice; Emergency Provider Emergency Medicine; PCP Family Medicine; Visit Provider General Practice
DX: F19.10 Other psychoactive substance abuse, uncomplicated (principal); T68.XXXA Hypothermia, initial encounter; F17.290 Nicotine dependence, other tobacco product, uncomplicated; F10.90 Alcohol use, unspecified, uncomplicated; Z59.00 Homelessness unspecified; I24.89 Other forms of acute ischemic heart disease; I48.91 Unspecified atrial fibrillation; R91.8 Other nonspecific abnormal finding of lung field; R79.89 Other specified abnormal findings of blood chemistry; R74.01 Elevation of levels of liver transaminase levels
CPT/HCPCS: 36415; 70450; 71045; 71260; 74177; 80053; 80307; 81001; 82077; 82550; 82803; 82948; 83605; 83690; 83735; 83880; 84100; 84145; 84443; 84484; 85025; 85610; 85730; 87040; 87081; 87186; 93005; 93306; 96360; 96361; 96365; 96366; 96367; 96375; 99285; A9270; G0378; G0379; J0692; J1163; J1836; J3373; J7120; Q9967

== ENCOUNTER 2025-03-03 13:40 | Emergency (ER) | payer OTHER, SELFPAY ==
[2025-03-03 13:48] VITALS: BP 133/89; PULSE 90; RESP 16; TEMP 36.7; O2SAT 99
== END 2025-03-03 15:12 | disposition left against medical advice (07) ==
LOC: ANHED 15:04
PROVIDERS: PCP Family Medicine
DX: R25.9 Unspecified abnormal involuntary movements (principal)
CPT/HCPCS: 99199

== ENCOUNTER 2025-04-07 18:53 | Emergency (ER) | payer OTHER, SELFPAY ==
--- NOTE | 2025-04-07 18:55 | PC.NURSE ---
ASSUMED CARE. REPORT RECEIVED FROM ESPERANZA RIVERA. PATIENT IS RESTING IN ROOM 5. CHANGED INTO PAPER SCRUBS. PERSONAL ITEMS IN LOCKED ROOM. CALM AND COOPERATIVE. MERLIN ALEXANDER, SITTER OUTSIDE THE ROOM
--- OUTSIDE RECORDS SUMMARY | 2025-04-07 18:55 | XMS_ITS | Clinical Summary ---
Author Organization [facility] Address [address] [place] [address] Care Team Providers Care Transfer Station Attendant Name Role Phone Unavailable Primary Care Provider Unavailabl e Source Comments [facility],non-owned Affiliates and Associated Physician Practices is amultiple site organization consisting of ambulatory clinics and hospital sitesin [place], [place], [place] and [place]. This disclosure is being madepursuant to the Care Everywhere program and may not contain all information available regarding this patient. Last updated 18.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 Respiratory Rate 16 04/15/2023 9:21 AM CHANNELING MACHINE RUNNER Oxygen Saturation 99% 04/15/2023 9:21 AM CHANNELING MACHINE RUNNER RA Inhaled Oxygen Concentration - - Weight 63.5 kg (140 lb) 04/15/2023 1:56 AM CHANNELING MACHINE RUNNER Height 167.6 cm (5' 6) 04/15/2023 1:56 AM CHANNELING MACHINE [employer]NER Body Mass Index 22.6 04/15/2023 1:56 AM CHANNELING MACHINE RUNNER Plan of Treatment Health Maintenance Due Date [...] DEPRESSION SCREENING 04/16/2024 COVID-19 VACCINE (1 - 2024-2 6 season) 2024 INFLUENZA VACCINE (#1) 2024 ZOSTER [...] Billing Address Personal/Family Self 1980 [address] [place] [address] [facility]
--- NOTE | 2025-04-07 19:00 | PC.NURSE ---
DR MERCEDES AT THE BEDSIDE
[2025-04-07 19:02] VITALS: BP 130/84; PULSE 83; RESP 14; TEMP 36.3; O2SAT 99
--- NOTE | 2025-04-07 19:02 | ECG_ITS ---
Test Date: 2025-04-07 19:23:34 Measurements Intervals Marble Rate: 60 P: 60 CA: 153 QRS: 79 QRSD: 100 T: 77 QT: 449 QTc: 450 Interpretive Statements SINUS RHYTHM VOLTAGE CRITERIA FOR LVH MINIMAL Q WAVES- ANTEROLAT/INF LEADS BASELINE ARTIFACT- I, II, III, AVR, AVL BORDERLINE ECG Compared to ECG 03/02/2025 03:19:31 HEART RATE HAS DECREASED Electronically Signed On 04-07-2025 21:00:36 DOUBLE CUTTER by Ted Frias D.O.
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
--- NOTE | 2025-04-07 19:09 | PC.NURSE ---
Handoff report given to NICOLE Chang.
--- OUTSIDE RECORDS SUMMARY | 2025-04-07 19:24 | XMS_ITS | Clinical Summary ---
Author Organization [facility] Address [address] [place] [address] Care Team Providers Care Senior Graduate Advisor Name Role Phone Unavailable Primary Care Provider Unavailabl e Source Comments [facility],non-owned Affiliates and Associated Physician Practices is amultiple site organization consisting of ambulatory clinics and hospital sitesin [place], [place], [place] and [place]. This disclosure is being madepursuant to the Care Everywhere program and may not contain all information available regarding this patient. 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 Gender Identity Not on file Sexual Orientation Not on file Last Filed Vital Signs Vital Sign Reading Time Taken Comments Blood Pressure 121/87 04/15/2023 9:21 AM GARAGE DOOR TECHNICIAN Pulse 66 04/15/2023 9:21 AM GARAGE DOOR TECHNICIAN Temperature 36.4 C (97.6 F) 04/15/2023 1:56 AM GARAGE DOOR TECHNICIAN Respiratory Rate 16 04/15/2023 9:21 AM GARAGE DOOR TECHNICIAN Oxygen Saturation 99% 04/15/2023 9:21 AM GARAGE DOOR TECHNICIAN RA Inhaled Oxygen Concentration - - Weight 63.5 kg (140 lb) 04/15/2023 1:56 AM GARAGE DOOR TECHNICIAN Height 167.6 cm (5' 6) 04/15/2023 1:56 AM GARAGE DOOR TECHNICIAN Body Mass Index 22.6 04/15/2023 1:56 AM GARAGE DOOR TECHNICIAN Plan of Treatment Health Maintenance Due Date [...] patient's age to complete this topic Insurance [facility]
--- OUTSIDE RECORDS SUMMARY | 2025-04-07 19:24 | XMS_ITS | Clinical Summary ---
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
[2025-04-07 19:26] LABS: Hematocrit 38.4 % (40.0-54.0); Hemoglobin 12.5 g/dL (14.0-18.0); Immature Granulocyte Percent A 0.2 % (0.0-0.0); Lymphocytes Absolute Auto 1.81 K/mm3 (1.10-4.50); Mean Corpuscular HGB Conc 32.6 g/dL (32-36); Mean Corpuscular Hemoglobin 30.4 pg (27.0-31.0); Mean Corpuscular Volume 93.4 fL (78.0-102.0); Nucleated Red Blood Cells Absolute Auto 0.00 K/mm3 (0.00-0.00); Nucleated Red Blood Cells Perc 0.0 % (0-0.0); Platelet Count Result 316 K/mm3 (150-420); Red Blood Count 4.11 M/mm3 (4.70-6.10); White Blood Count 5.7 K/mm3 (4.8-10.8)
[2025-04-07 19:38] LABS: Alanine Aminotransferase 36 U/L (6-50); Albumin Level 4.2 g/dL (3.5-5.1); Alkaline Phosphatase 94 U/L (38-126); Anion Gap 8 mmol/L (4-12); Aspartate Amino Transferase 42 U/L (17-59); Bilirubin,Total 0.6 mg/dL (0.2-1.3); Blood Urea Nitrogen 17 mg/dL (9-20); Calcium 8.8 mg/dL (8.4-10.2); Carbon Dioxide 25 mmol/L (22-30); Chloride 107 mmol/L (98-107); Estimated CRCL calculation 73 ml/min; Estimated Glomerular Filt Rate > 60; Glucose 86 mg/dL (65-110); Osmolality Calculated 290 mOsm/kg (285-295); Potassium 3.6 mmol/L (3.4-5.0); Sodium 140 mmol/L (137-145); Total Protein 6.6 g/dL (6.3-8.2)
[2025-04-07 19:39] LABS: Acetaminophen < 10 ug/mL (10-30); Salicylate < 1.0 mg/dL (2-20)
[2025-04-07 20:03] LABS: Influenza A QL RT-PCR Negative (Negative); Influenza B QL RT-PCR Negative (Negative); RSV RNA, RT-PCR Negative (Negative); SARS-CoV-2 RNA PCR Negative (Negative)
--- NOTE | 2025-04-07 20:09 | PC.NURSE ---
REQUESTED THAT PATIENT GIVE URINE SAMPLE.
[2025-04-07 20:22] LABS: Add Urine Microscopic? NO; Appearance Urine Clear (Clear); Glucose Urine UA Negative (Negative); Leukocyte Esterase Ur Negative LEU/UL (Negative); Nitrate Urine Negative (Negative); Specific Grav Ur 1.025 (1.010-1.020)
--- NOTE | 2025-04-07 20:29 | PC.NURSE ---
PATIENT HAS EATEN A SANDWICH AND HAD SOMETHING TO DRINK. URINE WAS TAKEN DOWN TO THE LAB. PATIENT IS BEING CALM AND COOPERATIVE. COVERED UP WITH A BLANKET AND APPEARS TO BE SLEEPING. MERLIN ALEXANDER, AT THE BEDSIDE SITTER.
[2025-04-07 20:30] LABS: Thyroid Stimulating Hormone 0.222 uIU/mL (0.465-4.680)
[2025-04-07 20:54] LABS: Cannabinoid Screen Urine Positive (Negative)
--- NOTE | 2025-04-07 21:00 | PC.NURSE ---
RESTING QUIETLY ON STRETCHER. CALM AND COOPERATIVE, RESP EVEN AND UNLABORED. MERLIN ALEXANDER, SITTING OUTSIDE THE ROOM
[2025-04-07 21:26] LABS: Free T4 Free Thyroxine 1.17 ng/dL (0.78-2.19)
--- NOTE | 2025-04-07 22:00 | PC.NURSE ---
PATIENT IS CURRENTLY RESTING ON STRETCHER. APPEARS TO BE SLEEPING. RESP EVEN AND UNLABORED. CATHERINE TECH, SITTING OUTSIDE THE ROOM SITTER.
--- NOTE | 2025-04-07 22:15 | PC.NURSE ---
LATIA WITH JOHN ANAYA AT THE BEDSIDE. PATIENT MOVED TO ROOM 1. ALL CORDS HAVE BEEN REMOVED FROM THE ROOM. PATIENT IS COOPERATIVE WITH FLORI ANAYA
--- NOTE | 2025-04-07 22:30 | PC.NURSE ---
LATIA WITH [address] AT THE BEDSIDE.
--- NOTE | 2025-04-07 23:00 | PC.NURSE ---
PATIENT IS CURRENTLY RESTING ON STRETCHER IN ROOM. APPEARS TO BE SLEEPING. THIS RN AT THE BEDSIDE SITTER.
[2025-04-07 23:50] VITALS: BP 108/82; PULSE 56; RESP 16; TEMP 36.4; O2SAT 98
--- NOTE | 2025-04-08 | PC.NURSE ---
PATIENT CURRENTLY RESTING ON STRETCHER. APPEARS TO BE SLEEPING. RESP EVEN AND UNLABORED. MERLIN MINOR, OUTSIDE THE ROOM SITTER.
--- NOTE | 2025-04-08 01:28 | PC.NURSE ---
PATIENT WAS NOTIFIED THAT HE WILL BE GOING TO [facility]. PATIENT STATES IM NOT GOING THERE. I DONT LIKE IT THERE. PATIENT SIGNED TRANSFER FORM. CALM AND COOPERATIVE.
[2025-04-08 01:51] VITALS: BP 134/100; PULSE 89; RESP 17; O2SAT 98
--- NOTE | 2025-04-08 01:55 | PC.NURSE ---
EMS HAS ARRIVED. PATIENT IS REFUSING TO GO TO [facility]. STATES HE WILL WALK OUT OF THE DEPARTMENT. STAFF ENCOURAGED PATIENT TO TRANSPORT TO [facility]. PATIENT IS REFUSING [facility]. LAID BACK ON THE STRETCHER.
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
--- NOTE | 2025-04-08 02:03 | PC.NURSE ---
AQUILES FROM [facility] WAS NOTIFIED THAT PATIENT IS REFUSING TO GO TO [place]. DR HUI WAS NOTIFIED. PATIENT TO BE MADE INVOLUNTARY AT THIS TIME.
--- NOTE | 2025-04-08 02:09 | PC.NURSE ---
KELLI RIVERA AT [facility] WAS NOTIFIED OF CHANGES AND TO BE SENT INVOLUNTARY.
--- NOTE | 2025-04-08 02:24 | PC.NURSE ---
PATIENT IS NOW LAYING DOWN ON STRETCHER. LIGHTS HAVE BEEN TURNED OFF.
--- NOTE | 2025-04-08 02:38 | PC.NURSE ---
TRIED TO GET PATIENT TO TALK TO THIS RN. PATIENT STATES I AM NOT GOING TO TALK TO YOU. I AM INVOLUNTARY NOW, SO I DONT EVEN HAVE A SAY SO. GET OUT OF MY ROOM. I AM NOT TALKING TO YOU.
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
--- NOTE | 2025-04-08 02:50 | PC.NURSE ---
DR العلي AT THE BEDSIDE. PATIENT IS REFUSING TO GO TO [facility] OR TO ANY PSYCHIATRIC FACILITY. DR العلي HAS INVOLUNTARY PAPERWORK.
--- NOTE | 2025-04-08 02:53 | PC.NURSE ---
[facility]PART[facility] HERE.
--- NOTE | 2025-04-08 02:58 | PC.NURSE ---
POLICE OFFICERS AT THE BEDSIDE.
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
--- NOTE | 2025-04-08 03:17 | PC.NURSE ---
PATIENT HAS WILLINGLY GOTTEN ONTO STRETCHER AND LEFT WITH EMS.
--- NOTE | 2025-04-08 03:30 | PC.NURSE ---
[facility], KELLI RIVERA, WAS NOTIFIED THAT PATIENT IS CURRENTLY ON HIS WAY VIA [facility] AND INVOLUNTARY PAPERWORK.
== END 2025-04-08 03:22 ==
PROVIDERS: Emergency Provider Emergency Medicine; Referring Provider Internal Medicine
DX: R45.851 Suicidal ideations (principal); F32.A Depression, unspecified; Z20.822 Contact with and (suspected) exposure to COVID-19
CPT/HCPCS: 36415; 80053; 80143; 80179; 80307; 81003; 82077; 84439; 84443; 85025; 87637; 93005; 99285